=== PATIENT | female | born 1935 | race African-American/Black ===

== ENCOUNTER 2021-03-08 11:11 | Emergency (ER) | payer MEDICARE, OTHER ==
[2021-03-08 11:16] VITALS: TEMP 97.8
--- NOTE | 2021-03-08 11:35 | ED ---
General Adult HPI - General Chief complaint: Recheck/Abnormal Lab/Rx Stated complaint: Peg tube issue Time Seen by Provider: 03/08/21 11:14 Source: patient, EMS, RN notes reviewed, old records reviewed Mode of arrival: EMS Limitations: altered mental status - History of Present Illness Initial comments: 85-year-old female presenting for PEG tube malfunction. According to EMS the PEG tube and not flushed this morning and medications were not able to be administered. No other issues reported, no fever. No vomiting. No erythema around the PEG tube site reported. Staff attempted to flush but were unable to flush the PEG tube. - Related Data Home Medications Medication Instructions Recorded Confirmed Acetaminophen Oral Susp [Tylenol] 650 mg PEG/G-TUBE QID PRN 03/08/21 03/08/21 Ascorbic Acid [Vitamin C] 500 mg PEG/G-TUBE DAILY 03/08/21 03/08/21 Atorvastatin [Lipitor] 40 mg PEG/G-TUBE HS 03/08/21 03/08/21 Carvedilol [Coreg] 25 mg PEG/G-TUBE BID 03/08/21 03/08/21 Cholecalciferol [Vitamin D3 (25 50 mcg PEG/G-TUBE DAILY 03/08/21 03/08/21 Mcg = 1000 Iu)] Famotidine 20 mg PEG/G-TUBE HS 03/08/21 03/08/21 Sennosides/Docusate Sodium [Senna 1 tab PEG/G-TUBE HS 03/08/21 03/08/21 Plus 8.6-50 mg Tablet] Zinc 50 mg PEG/G-TUBE DAILY 03/08/21 03/08/21 amLODIPine [Norvasc] 10 mg PEG/G-TUBE DAILY 03/08/21 03/08/21 bisacodyL [Bisacodyl] 10 mg RECTAL Q48H 03/08/21 03/08/21 dexAMETHasone [Dexamethasone] 2 mg PEG/G-TUBE DAILY 03/08/21 03/08/21 lisinopriL [Zestril] 10 mg PEG/G-TUBE BID 03/08/21 03/08/21 Allergies Allergy/AdvReac Type Severity Reaction Status Date / Time No Known Allergies Allergy Verified 03/08/21 11:29 Review of Systems ROS Statement: Those systems with pertinent positive or pertinent negative responses have been documented in the HPI. ROS Other: All systems not noted in ROS Statement are negative. Past Medical History Past Medical History: Unable to Obtain History of Any Multi-Drug Resistant Organisms: Unobtainable Past Surgical History: Unable to Obtain Past Psychological History: Unable to Obtain Smoking Status: Unknown if ever smoked Past Alcohol Use History: Unable to Obtain Past Drug Use History: Unable to Obtain General Exam Limitations: altered mental status General appearance: in no apparent distress, lethargic, cachectic Head exam: Present: atraumatic, normocephalic Eye exam: Present: normal appearance, PERRL Respiratory exam: Present: normal lung sounds bilaterally. Absent: respiratory distress, wheezes, rales Cardiovascular Exam: Present: regular rate, normal rhythm GI/Abdominal exam: Present: soft, other (No erythema surrounding PEG tube site.). Absent: distended, tenderness Neurological exam: Absent: oriented X3 Skin exam: Present: warm, dry, intact. Absent: cyanosis, diaphoretic Course Vital Signs 03/08/21 11:13 Temperature 97.8 F Pulse Rate 74 Respiratory 16 Rate Blood Pressure 167/68 O2 Sat by Pulse 98 Oximetry Medical Decision Making - Medical Decision Making 85-year-old female with suspected PEG tube malfunction. I was able to easily draw and flush water through the PEG tube. X-ray with contrast was performed to confirm placement. There is satisfactory opacification within the stomach, no free air, no contrast extravasation. Disposition Clinical Impression: PEG tube malfunction Disposition: HOME SELF-CARE Condition: Fair Instructions (If sedation given, give patient instructions): How to Use and Care for Your PEG Tube (ED) Is patient prescribed a controlled substance at d/c from ED?: No Referrals: Jm Ponce MD [Primary Care Provider] - 1-2 days
--- NOTE | 2021-03-08 12:14 | XR ---
EXAMINATION TYPE: XR KUB DATE OF EXAM: 03/08/2021 12:09 PM CLINICAL HISTORY: PEG tube displacement and repositioning TECHNIQUE: Single portable supine KUB image of the abdomen is obtained after PEG tube injection of 50 cc Isovue 370. COMPARISON: None. FINDINGS: There is successful contrast opacification of the stomach in the epigastric region and left upper quadrant consistent with successful repositioning. Numerous small coils from ventral wall maverick ia repair surgery overlie the visualized abdomen. Overall nonobstructive bowel gas pattern. Visualize d lungs are clear. Visualized osseous structures are demineralized. IMPRESSION: As above.
[2021-03-08 13:37] VITALS: BP 157/98; PULSE 72; RESP 18
== END 2021-03-08 13:55 | disposition home or self-care (01) ==
LOC: EC 11:11 → EEVIPCON 11:11 → EC 13:55
DX: K94.23 Gastrostomy malfunction (principal); Z79.02 Long term (current) use of antithrombotics/antiplatelets; Z79.899 Other long term (current) drug therapy; Z79.52 Long term (current) use of systemic steroids
CPT/HCPCS: 74018; 99284; Q9967; 87070; 87077; 87186; 87205

== ENCOUNTER 2021-03-13 19:37 | Emergency (ER) | payer MEDICARE, OTHER ==
[2021-03-13 20:07] VITALS: TEMP 98.5
--- NOTE | 2021-03-13 20:58 | ED ---
General Adult HPI - General Chief complaint: Fall Stated complaint: Fall Time Seen by Provider: 03/13/21 19:57 Source: patient, EMS, RN notes reviewed, old records reviewed Mode of arrival: EMS Limitations: physical limitation - History of Present Illness Initial comments: 85-year-old female presents status post fall. Patient is bedbound, uncertain exactly how she fell out of her bed. There was suggestion of head injury but no external signs of trauma. Patient is unable to significantly contribute to the history but she does deny head or neck pain. Denies any new pain complaints. - Related Data Home Medications Medication Instructions Recorded Confirmed Acetaminophen Oral Susp [Tylenol] 650 mg PEG/G-TUBE QID PRN 03/08/21 03/13/21 Ascorbic Acid [Vitamin C] 500 mg PEG/G-TUBE DAILY@0903/08/21 03/13/21 Atorvastatin [Lipitor] 40 mg PEG/G-TUBE HS@209903/08/21 03/13/21 Carvedilol [Coreg] 25 mg PEG/G-TUBE BID@09,209903/08/21 03/13/21 Cholecalciferol [Vitamin D3 (25 50 mcg PEG/G-TUBE DAILY@0900 03/08/21 03/13/21 Mcg = 1000 Iu)] Famotidine 20 mg PEG/G-TUBE HS@209903/08/21 03/13/21 Sennosides/Docusate Sodium [Senna 1 tab PEG/G-TUBE HS@209903/08/21 03/13/21 Plus 8.6-50 mg Tablet] Zinc 50 mg PEG/G-TUBE DAILY@89903/08/21 03/13/21 amLODIPine [Norvasc] 10 mg PEG/G-TUBE DAILY@0900 03/08/21 03/13/21 bisacodyL [Bisacodyl] 10 mg RECTAL Q48H 03/08/21 03/13/21 lisinopriL [Zestril] 10 mg PEG/G-TUBE BID@0900,209903/08/21 03/13/21 Lactose-Reduced Food/Fiber [Jevity 75 ml PO DAILY@1400 03/13/21 03/13/21 1.2 Sachin Liquid] Sulfamethox-Tmp 800-160Mg [Bactrim 1 tab PEG/G-TUBE BID@0900,2100 03/13/21 03/13/21 DS 800-160 mg] Allergies Allergy/AdvReac Type Severity Reaction Status Date / Time No Known Allergies Allergy Verified 03/13/21 20:16 Review of Systems ROS Statement: Those systems with pertinent positive or pertinent negative responses have been documented in the HPI. ROS Other: All systems not noted in ROS Statement are negative. Past Medical History Past Medical History: Unable to Obtain, Heart Failure, Hyperlipidemia Additional Past Medical History / Comment(s): COVID POSITIVE. BRAIN BLEED HISTORY WITH LEFT HEMIPARESIS History of Any Multi-Drug Resistant Organisms: Unobtainable Past Surgical History: Unable to Obtain Past Psychological History: Unable to Obtain Smoking Status: Unknown if ever smoked Past Alcohol Use History: Unable to Obtain Past Drug Use History: Unable to Obtain General Exam Limitations: physical limitation General appearance: alert, cachectic Head exam: Present: atraumatic, normocephalic Eye exam: Present: normal appearance, PERRL Respiratory exam: Present: rales, rhonchi. Absent: respiratory distress Cardiovascular Exam: Present: regular rate, normal rhythm GI/Abdominal exam: Present: soft, other (PEG tube). Absent: distended, tenderness, guarding Neurological exam: Present: alert Skin exam: Present: warm, dry, intact. Absent: abrasion Course Vital Signs 03/13/21 19:41 Temperature 98.5 F Pulse Rate 85 Respiratory 28 H Rate Blood Pressure 152/75 O2 Sat by Pulse 94 L Oximetry Medical Decision Making - Medical Decision Making 85-year-old female with an unwitnessed fall out of bed. 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 Unable to contribute to the history significantly. There is no external signs of trauma on examination. Given that there was a history of possible head, did perform CT of both the brain and cervical spine. This is negative for intracranial traumatic injury, or fracture or subluxation of the cervical spine. Disposition Clinical Impression: Fall Disposition: HOME SELF-CARE Condition: Fair Instructions (If sedation given, give patient instructions): Fall Prevention for Older Adults (ED) Is patient prescribed a controlled substance at d/c from ED?: No Referrals: Jm Ponce MD [Primary Care Provider] - 1-2 days Time of Disposition: 20:58
--- NOTE | 2021-03-13 22:04 | CT ---
EXAMINATION TYPE: CT brain emilia bone DATE OF EXAM: 03/13/2021 COMPARISON: None HISTORY: FALL. Trauma. Fall from bed. CT DLP: 1208 mGycm Automated exposure control for dose reduction was used. TECHNIQUE: CT scan of the head and cervical spine are performed without contrast. FINDINGS: There is no acute intracranial hemorrhage, mass effect, or midline shift identified. There is general ized volume loss. There is marked white matter hypodensities, right greater than left, likely sequela of chronic microvascular ischemic change. There is diffuse prominence of the ventricles concordant w ith generalized volume loss, mildly more asymmetric of the right lateral ventricles. There is a tiny focal hyperdensity along the wall of the right lateral ventricle mid body (201:30, 202:36). There is asymmetric hypodensity and decreased size of the right thalamus. Calcified vascular atherosclerotic d isease. There is a mild right frontal extracranial soft tissue hematoma. No depressed calvarial fracture. The re is mucosal thickening of the left sphenoid sinus. Mastoid air cells are clear. There is straightening of the cervical lordosis with multilevel multifactorial degenerative changes. There is no acute fracture or subluxation. Vertebral body heights are normal. There is an ossific den sity at the tip of the dens which is very well corticated and appears chronic and likely related to u nfused ossicle versus degenerative change. No prevertebral soft tissue swelling. Marked calcified ath erosclerotic disease of the bilateral carotid bulbs. Heterogenous nodular appearance of the thyroid gland bilaterally. IMPRESSION: 1. Small right frontal extracranial soft tissue hematoma. 2. No definite acute intracranial hemorrhage, midline shift, or mass effect. 3. Generalized volume loss, and marked white matter hypodensities likely sequela of chronic microvasc ular ischemic change (right greater than left). 4. Encephalomalacia of the right thalamus, mildly asymmetric prominence of the right lateral ventricl e, and small right lateral ventricular wall hyperdensity which likely represents calcification. These findings likely represent sequela of old infarction. 5. No acute cervical spine fracture or subluxation. 6. Marked calcified atherosclerotic disease of the bilateral carotid bulbs.
[2021-03-13 22:10] VITALS: BP 147/72; PULSE 71; RESP 24
== END 2021-03-13 23:37 | disposition home or self-care (01) ==
LOC: EC 19:37
DX: Z04.3 Encounter for examination and observation following other accident (principal); I50.9 Heart failure, unspecified; E78.5 Hyperlipidemia, unspecified; Z86.16 Personal history of COVID-19
CPT/HCPCS: 70450; 72125; 99284

== ENCOUNTER 2021-03-15 10:04 | Inpatient (IN) | payer MEDICARE, OTHER ==
--- NOTE | 2021-03-15 10:33 | ED ---
General Adult HPI - General Chief complaint: Shortness of Breath Stated complaint: SOB Time Seen by Provider: 03/15/21 10:13 Source: patient, EMS, RN notes reviewed, old records reviewed Mode of arrival: EMS Limitations: no limitations, altered mental status - History of Present Illness Initial comments: Patient is a pleasant 85-year-old female presenting to the emergency department with concerns for dyspnea. Patient recently from [place] [facility] for recovery with coronavirus infection. Patient states she is feeling fine and has no complaints. Patient is a very poor historian. Patient denies any recent injuries. Patient does have some ecchymosis right forehead and chart review revealed recent visit with computed tomography scan. - Related Data Home Medications Medication Instructions Recorded Confirmed Acetaminophen Oral Susp [Tylenol] 650 mg PEG/G-TUBE QID PRN 03/08/21 03/15/21 Ascorbic Acid [Vitamin C] 500 mg PEG/G-TUBE DAILY@0900 03/08/21 03/15/21 Atorvastatin [Lipitor] 40 mg PEG/G-TUBE HS@209903/08/21 03/15/21 Carvedilol [Coreg] 25 mg PEG/G-TUBE BID@0900,209903/08/21 03/15/21 Cholecalciferol [Vitamin D3 (25 50 mcg PEG/G-TUBE DAILY@0900 03/08/21 03/15/21 Mcg = 1000 Iu)] Famotidine 20 mg PEG/G-TUBE HS@209903/08/21 03/15/21 Sennosides/Docusate Sodium [Senna 2 tab PEG/G-TUBE HS@209903/08/21 03/15/21 Plus 8.6-50 mg Tablet] Zinc 50 mg PEG/G-TUBE DAILY@0900 03/08/21 03/15/21 amLODIPine [Norvasc] 10 mg PEG/G-TUBE DAILY@0900 03/08/21 03/15/21 bisacodyL [Bisacodyl] 10 mg RECTAL Q48H 03/08/21 03/15/21 lisinopriL [Zestril] 10 mg PEG/G-TUBE BID@0900,209903/08/21 03/15/21 Lactose-Reduced Food/Fiber [Jevity 75 ml PEG/G-TUBE DAILY@1400 03/13/21 03/15/21 1.2 Sachin Liquid] Sulfamethox-Tmp 800-160Mg [Bactrim 1 tab PEG/G-TUBE BID@0900,2100 03/13/21 03/15/21 DS 800-160 mg] Allergies Allergy/AdvReac Type Severity Reaction Status Date / Time No Known Allergies Allergy Verified 03/15/21 10:20 Review of Systems ROS Statement: Those systems with pertinent positive or pertinent negative responses have been documented in the HPI. ROS Other: All systems not noted in ROS Statement are negative. Constitutional: Denies: fever Eyes: Denies: eye pain ENT: Denies: ear pain Respiratory: Reports: as per HPI. Denies: cough, dyspnea Cardiovascular: Denies: chest pain Endocrine: Denies: fatigue Gastrointestinal: Denies: abdominal pain Genitourinary: Denies: dysuria Musculoskeletal: Denies: back pain Skin: Denies: rash Neurological: Denies: weakness Past Medical History Past Medical History: Unable to Obtain Additional Past Medical History / Comment(s): COVID POSITIVE. BRAIN BLEED HISTORY WITH LEFT HEMIPARESIS History of Any Multi-Drug Resistant Organisms: Unobtainable Past Surgical History: Unable to Obtain Past Psychological History: Unable to Obtain Smoking Status: Unknown if ever smoked Past Alcohol Use History: Unable to Obtain Past Drug Use History: Unable to Obtain General Exam Limitations: altered mental status General appearance: alert, in no apparent distress Head exam: Present: other (Ecchymosis without tenderness or swelling right forehead) Eye exam: Present: normal appearance Neck exam: Present: normal inspection Respiratory exam: Present: rales Cardiovascular Exam: Present: regular rate, normal rhythm GI/Abdominal exam: Present: soft. Absent: tenderness Extremities exam: Present: other (Left arm contracted) Neurological exam: Present: alert, motor sensory deficit (Left hemiparesis) Psychiatric exam: Present: normal affect, normal mood Skin exam: Present: other (Ecchymosis right forehead) Course Vital Signs 03/15/21 03/15/21 10:08 10:57 Temperature 98.3 F Pulse Rate 70 Respiratory 30 H 30 H Rate Blood Pressure 126/66 O2 Sat by Pulse 97 Oximetry EKG Findings - EKG Comments: EKG Findings:: Normal sinus rhythm with rate of 69. MA 146. QRS 68. QT 363 QTC 413. Normal axis. Normal QRS. No acute ST change. Medical Decision Making - Medical Decision Making Patient reevaluated and updated. Case was discussed with Dr. Goncalves, who will admit covering for Dr. Ponce. - Lab Data Result diagrams: 03/15/21 10:48 03/15/21 10:48 Lab Results 03/15/21 03/15/21 03/15/21 Range/Units 10:48 10:48 10:48 WBC 5.9 (3.8-10.6) k/uL RBC 3.03 L (3.80-5.40) m/uL Hgb 9.0 L (11.4-16.0) gm/dL Hct 29.1 L (34.0-46.0) % MCV 96.0 (80.0-100.0) fL MCH 29.6 (25.0-35.0) pg MCHC 30.8 L (31.0-37.0) g/dL RDW 14.7 (11.5-15.5) % MPV 11.4 Sodium 136 L (137-145) mmol/L Potassium 5.8 H (3.5-5.1) mmol/L Chloride 106 (98-107) mmol/L Carbon Dioxide 25 (22-30) mmol/L Anion Gap 5 mmol/L BUN 42 H (7-17) mg/dL Creatinine 0.84 (0.52-1.04) mg/dL Est GFR (CKD-EPI)AfAm 74 (>60 ml/min/1.73 sqM) Est GFR (CKD-EPI)NonAf 64 (>60 ml/min/1.73 sqM) Glucose 110 H (74-99) mg/dL Plasma Lactic Acid Toy 0.9 (0.7-2.0) mmol/L Calcium 9.1 (8.4-10.2) mg/dL Total Bilirubin 0.3 (0.2-1.3) mg/dL AST 31 (14-36) U/L ALT 21 (4-34) U/L Alkaline Phosphatase 81 (38-126) U/L Total Protein 5.6 L (6.3-8.2) g/dL Albumin 2.9 L (3.5-5.0) g/dL - Radiology Data Radiology results: image reviewed (Chest x-ray concerning for right retrocardiac density concerning for pneumonia.) Disposition Clinical Impression: Pneumonia, Dyspnea Disposition: ADMITTED IP TO THIS HOSP Is patient prescribed a controlled substance at d/c from ED?: No Referrals: Jm Ponce MD [Primary Care Provider] - 1-2 days Decision Time: 11:22
[2021-03-15 11:03] LABS: Basophils % (A) 0 %; Eosinophils # (A) 0.1 k/uL (0-0.7); Eosinophils % (A) 2 %; HCT 29.1 % (34.0-46.0); Lymphocytes # (A) 0.8 k/uL (1.0-4.8); Lymphocytes % (A) 14 %; MCH 29.6 pg (25.0-35.0); MCHC 30.8 g/dL (31.0-37.0); Mean Platelet Volume 11.4; Monocytes # (A) 0.4 k/uL (0-1.0); Monocytes % (A) 6 %; Neutrophils # (A) 4.5 k/uL (1.3-7.7); Neutrophils % (A) 77 %; RBC 3.03 m/uL (3.80-5.40); RDW 14.7 % (11.5-15.5); WBC 5.9 k/uL (3.8-10.6)
--- NOTE | 2021-03-15 11:11 | XR ---
EXAMINATION TYPE: XR chest 2V DATE OF EXAM: 03/15/2021 COMPARISON: NONE HISTORY: Difficulty breathing, weakness TECHNIQUE: Frontal and lateral views of the chest are obtained. FINDINGS: Patient is rotated, the aorta is dense. Heart may be enlarged, possibly accentuated due to rotation. No evident pneumothorax or sizable pleural effusion. There is questionable retrocardiac de nsity in the right, increased attenuation noted on the lateral exam. There are overlying artifacts, b one mineralization is reduced. IMPRESSION: Rotated exam. There are limitations. Correlate for pneumonia.
[2021-03-15 11:13] LABS: Prothrombin Time 10.4 sec (9.0-12.0)
[2021-03-15 11:15] LABS: Albumin 2.9 g/dL (3.5-5.0); Calcium 9.1 mg/dL (8.4-10.2); Potassium 5.8 mmol/L (3.5-5.1); Total Bilirubin 0.3 mg/dL (0.2-1.3); Total Protein 5.6 g/dL (6.3-8.2)
[2021-03-15] MEDS ORDERED: AZITHROMYCIN 500 MG in SODIUM CHLORIDE 0.9% 250 ML IVPB STA (11:23)
[2021-03-15] MEDS ORDERED: PIPERACILLIN-TAZOBACTAM 3.375 GM in SODIUM CHLORIDE 0.9% 100 ML IVPB STA (11:23)
[2021-03-15] MEDS ORDERED: IPRATROPIUM-ALBUTEROL 3 ML NEB INHALATION PRN (11:23)
[2021-03-15] MEDS ORDERED: PNEUMONIA PROTOCOL UTILIZED 1 EACH MISC PO PRN (11:23)
[2021-03-15 11:53] LABS: Platelet Count 59 k/uL (150-450)
[2021-03-15 12:09] LABS: Partial Thromboplastin Time 21.3 sec (22.0-30.0)
[2021-03-15] MEDS: SODIUM CHLORIDE 0.9% 1,000 ML IV SCH ×2 (12:09→20:24)
--- NOTE | 2021-03-15 13:28 | CT ---
EXAMINATION TYPE: CT angio chest DATE OF EXAM: 03/15/2021 COMPARISON: Chest x-ray 03/15/2021 HISTORY: Dyspnea CT DLP: 200.1 mGycm Automated exposure control for dose reduction was used. CONTRAST: CTA scan of the thorax is performed with IV Contrast, patient injected with 73 mL of Isovue 370, pulm onary embolism protocol. MIP images are created and reviewed. 3D reconstructed images are created o n an independent workstation and reviewed. FINDINGS: LUNGS: The lungs are remarkable for airspace disease in the right lower lobe, left lower lobe. Ther e is no pleural effusion or pneumothorax seen. The tracheobronchial tree is remarkable for bronchiec tatic changes in the right lower lobe. There is emphysematous and interstitial change within the lung s. AORTA: There are extensive atheromatous changes. MEDIASTINUM: There is satisfactory enhancement of the pulmonary artery and its branches, there is no CT evidence for pulmonary embolism. There are no greater than 1 cm hilar or mediastinal lymph nodes. Small pericardial effusion is seen. Prominence of pulmonary artery may be indicative of pulmonary ar samia hypertension. There are coronary artery calcifications OTHER: There are low dense thyroid nodules. There is thoracic spondylosis IMPRESSION: CORRELATE FOR PNEUMONIA. INTERSTITIAL LUNG DISEASE, BRONCHIECTASIS, FOLLOW-UP SUGGESTED, THERE IS EMP HYSEMA, CORRELATE FOR PULMONARY ARTERY HYPERTENSION. Small pericardial effusion, coronary artery dise ase
[2021-03-15] MEDS ORDERED: ACETAMINOPHEN ORAL SUSP (PEDS) 3,840 MG/120 ML BOTTLE PEG/G-TUBE PRN (17:03)
--- NOTE | 2021-03-15 19:09 | HP ---
HISTORY AND PHYSICAL CHIEF COMPLAINT: Shortness of breath. HISTORY OF PRESENT ILLNESS: This 85-year-old woman with past medical history of multiple medical problems including history of brain bleed with left hemiparesis, being followed by Dr. Ponce in the outpatient setting, was taken to [facility] with complaints of shortness of breath. The patient unable to give a coherent history. The patient is in a [place] [facility] and the patient was previously tested for COVID-19 positive. The patient is complaining of weakness and some shortness of breath. The patient came to [facility] and was admitted for further evaluation and treatment. Evaluation showed pulse ox about 98% on 2 L. Patient was tachypneic initially. The chest x-ray was done which was reviewed personally by me showed possibly significant pneumonia on the right side and the patient had multiple lab abnormalities. Covid 19 test was positive. Patient admitted to the hospital further evaluation and treatment. There is no history of any fever, rigor or chills at this time. PAST MEDICAL HISTORY: Brain bleed with left hemiparesis. MEDICATIONS: Medications prior to admission include home medications are: Zestril, Norvasc, Bactrim DS, lactulose, Pepcid, vitamin D3, Coreg, Lipitor, vitamin C, Tylenol. ALLERGIES: None. Family history, social history and review of systems could not be taken at length because of change in mental status. PHYSICAL EXAMINATION: Pulse 76. Blood pressure 126/61, respiration 30, temperature 98.3, pulse ox 97% on 2 L. HEENT: Conjunctivae normal. NECK: No JVD. CARDIOVASCULAR: S1, S2 muffled. RESPIRATION: Breath sounds diminished in the bases. A few scattered rhonchi. ABDOMEN: Soft, scaphoid. LEGS: No edema. No swelling. NERVOUS SYSTEM: Higher functions as mentioned. Movements are diminished. Some contractures also present. SKIN: No ulcers, rashes or bleeding. JOINTS: No active deforming arthropathy. LABS: WBC 5.9, hemoglobin 9, platelets of 59. Sodium 130, potassium 5.8. ASSESSMENT: 1. Acute COVID-19 pneumonia with possible acute COVID-19 bilateral pneumonia. 2. Elevated D-dimer. 3. Hyponatremia. 4. Hyperkalemia. 5. Anemia, normocytic. 6. Thrombocytopenia. 7. Hypoalbuminemia with malnutrition. 8. Hypertension. 9. History of brain bleed with left hemiparesis. RECOMMENDATIONS AND DISCUSSION: This 85-year-old woman who presented with multiple complex medical issues, we will monitor the patient closely. Continue the current medications, management and symptomatic treatment. We will initiate broad-spectrum IV antibiotics. Otherwise, I would also recommend a CT angio of the chest to rule out the possibility of pulmonary embolism. Usual treatment with COVID-19. Guarded prognosis because of multiple complex medical issues. Further recommendations to follow. A copy of dictation being forwarded to Dr. Ponce who is the primary physician. MMODL / IJN: [id number] /
[2021-03-15] MEDS: ENOXAPARIN 40 MG/0.4 ML SYRINGE SQ SCH (20:23)
[2021-03-15] MEDS: SENNOSIDES-DOCUSATE SODIUM 1 EACH TAB PO SCH (20:24)
[2021-03-15] MEDS: carvediloL 12.5 MG TAB PEG/G-TUBE SCH (20:24)
[2021-03-15] MEDS: lisinopriL 10 MG TAB PEG/G-TUBE SCH (20:24)
[2021-03-15] MEDS: ATORVASTATIN 40 MG TAB PEG/G-TUBE SCH (20:24)
[2021-03-15] MEDS: PIPERACILLIN-TAZOBACTAM 3.375 GM in SODIUM CHLORIDE 0.9% 100 ML IVPB SCH (20:31)
[2021-03-16] MEDS: PIPERACILLIN-TAZOBACTAM 3.375 GM in SODIUM CHLORIDE 0.9% 100 ML IVPB SCH ×3 (03:09→19:46)
[2021-03-16] MEDS: amLODIPine 10 MG TAB PEG/G-TUBE SCH (07:21)
[2021-03-16] MEDS: carvediloL 12.5 MG TAB PEG/G-TUBE SCH ×2 (08:08→19:46)
[2021-03-16] MEDS: lisinopriL 10 MG TAB PEG/G-TUBE SCH ×2 (08:09→19:46)
[2021-03-16] MEDS: bisacodyL 10 MG SUPP RECTAL SCH (08:11)
[2021-03-16] MEDS: ENOXAPARIN 40 MG/0.4 ML SYRINGE SQ SCH (08:11)
[2021-03-16] MEDS: ZINC SULFATE 220 MG CAP PEG/G-TUBE SCH (08:11)
[2021-03-16] MEDS: ASCORBIC ACID 500 MG TAB PEG/G-TUBE SCH (08:11)
[2021-03-16] MEDS: CHOLECALCIFEROL 25 MCG (1000 IU) TABLET PEG/G-TUBE SCH (08:11)
[2021-03-16] MEDS: ALBUTEROL HFA INHALER INHALATION PRN ×2 (09:29→16:16)
[2021-03-16] MEDS ORDERED: AZITHROMYCIN 500 MG in SODIUM CHLORIDE 0.9% 250 ML IVPB SCH (11:00)
--- NOTE | 2021-03-16 11:29 | XR ---
EXAMINATION TYPE: XR chest 1V portable DATE OF EXAM: 03/16/2021 HISTORY: Shortness of breath. COMPARISON: 03/15/2021 TECHNIQUE: Single view of the chest is submitted. FINDINGS: Demonstrated are scattered senescent parenchymal change. Hyperinflation is compatible with COPD. There is no evidence for focal infiltrate. The heart is stable. Hilar and mediastinal structures are within normal limits. Degenerative changes are seen of the dorsal spine. IMPRESSION: 1. Chronic changes without evidence for acute pulmonary disease.
[2021-03-16 11:45] LABS: African American GFR (CKD) 78.5 (60.0-200.0); Anion Gap 5.6 mmol/L (4.00-12.00); Calcium 8.8 mg/dL (8.7-10.3); Carbon Dioxide 20.4 mmol/L (21.6-31.8); Non-African American GFR(CKD) 67.7 (60.0-200.0); Potassium 5.4 mmol/L (3.5-5.5)
[2021-03-16] MEDS ORDERED: LACTOSE REDUCED FOOD PEG/G-TUBE SCH (14:00)
[2021-03-16] MEDS ORDERED: FIBER PEG/G-TUBE SCH (14:00)
[2021-03-16 15:14] LABS: Basophils # (A) 0.01 X 10*3/uL (0.00-0.10); Basophils % (A) 0.3 %; Eosinophils # (A) 0.09 X 10*3/uL (0.04-0.35); Eosinophils % (A) 2.4 %; HCT 28.2 % (37.2-46.3); HGB 8.3 g/dL (12.0-15.0); Lymphocytes # (A) 0.74 X 10*3/uL (0.90-5.00); Lymphocytes % (A) 19.7 %; MCH 30.4 pg (27.0-32.0); MCHC 29.4 g/dL (32.0-37.0); MCV 103.3 fL (80.0-97.0); Mean Platelet Volume 13.1 fL (9.5-12.2); Monocytes # (A) 0.36 X 10*3/uL (0.20-1.00); Monocytes % (A) 9.6 %; Neutrophils # (A) 2.55 X 10*3/uL (1.80-7.70); Neutrophils % (A) 67.7 %; Platelet Count 58 X 10*3/uL (140-440); RBC 2.73 X 10*6/uL (4.10-5.20); RDW 14.5 % (11.5-14.5); WBC 3.76 X 10*3/uL (4.50-10.00)
[2021-03-16 15:15] LABS: Acanthocytes 2+
--- NOTE | 2021-03-16 17:21 | PN ---
PROGRESS NOTE DATE OF SERVICE: 03/16/2021 This 85-year-old woman who is followed by Dr. Ponce in the outpatient setting had COVID- 19 pneumonia. The patient had extensive bilateral pneumonia suggestive of COVID- 19 pneumonia, right more than the left. Past medical history reviewed. Review of systems could not be taken. CURRENT MEDICATIONS: Ventolin. Norvasc, vitamin C, Lipitor, Zithromax, Lovenox, Zestril, Zosyn. PHYSICAL EXAMINATION: Patient is alert, oriented x3. Pulse 67, blood pressure 120/50, respirations 16, temperature 97.4, pulse ox 97% on 2 L. HEENT: Conjunctivae normal. NECK: No jugular venous distention. CARDIOVASCULAR SYSTEM: S1, S2 muffled. RESPIRATORY SYSTEM: Breath sounds diminished at the bases. Scattered rhonchi and crackles. ABDOMEN: Soft, non-tender. Status post PEG tube present. LEGS: No edema. No swelling. NERVOUS SYSTEM: No focal deficit. Left contractures present. LABS: WBC 3.6, hemoglobin is 8.3, platelets are 58. Sodium is 141, potassium 5.4. COVID-19 is positive. ASSESSMENT: 1. Acute COVID-19 pneumonia with possible acute bilateral interstitial pneumonia, right more than the left. 2. Change in mental status, acute metabolic encephalopathy. 3. Elevated D-dimer. 4. Hyponatremia. 5. Hyperkalemia. 6. Anemia, normocytic. 7. Status post PEG tube. 8. Thrombocytopenia. 9. Hypoalbuminemia with malnutrition. 10.Hypertension. 11.History of brain bleed and left hemiparesis. 12.FULL CODE. RECOMMENDATIONS AND DISCUSSION: In this 85-year-old woman who presented with multiple complex medical issues, we will monitor the patient closely, continue the current medications, continue symptomatic treatment. Continue the broad-spectrum IV antibiotics. Continue with PEG tube, aspiration precautions. Measures for the DVT and measures for the COVID-19 pneumonia as well. Prognosis is extremely guarded because of multiple complex medical issues. I would also repeat labs tomorrow and continue to monitor. Further recommendations to follow. Cultures are pending at this time. MMODL / IJN: [id number] / MTDD
[2021-03-16] MEDS: SODIUM CHLORIDE 0.9% 1,000 ML IV SCH (17:45)
[2021-03-16 18:04] LABS: ALT 19 U/L (4-34); AST 28 U/L (14-36); African American GFR (CKD) >90 (>60 ml/min/1.73 sqM); Albumin 2.5 g/dL (3.5-5.0); Alkaline Phosphatase 67 U/L (38-126); Anion Gap 4 mmol/L; Blood Urea Nitrogen 28 mg/dL (7-17); Calcium 8.9 mg/dL (8.4-10.2); Carbon Dioxide 21 mmol/L (22-30); Chloride 114 mmol/L (98-107); Globulin 2.4 g/dL; Glucose 119 mg/dL (74-99); Non-African American GFR(CKD) 79 (>60 ml/min/1.73 sqM); Sodium 139 mmol/L (137-145); Total Bilirubin 0.2 mg/dL (0.2-1.3); Total Protein 4.9 g/dL (6.3-8.2)
[2021-03-16] MEDS: SENNOSIDES-DOCUSATE SODIUM 1 EACH TAB PO SCH (19:15)
[2021-03-16] MEDS: ATORVASTATIN 40 MG TAB PEG/G-TUBE SCH (19:45)
[2021-03-17] MEDS: PIPERACILLIN-TAZOBACTAM 3.375 GM in SODIUM CHLORIDE 0.9% 100 ML IVPB SCH ×3 (02:40→20:09)
[2021-03-17] MEDS: ENOXAPARIN 40 MG/0.4 ML SYRINGE SQ SCH (08:19)
[2021-03-17] MEDS: ASCORBIC ACID 500 MG TAB PEG/G-TUBE SCH (08:20)
[2021-03-17] MEDS: lisinopriL 10 MG TAB PEG/G-TUBE SCH ×2 (08:20→20:10)
[2021-03-17] MEDS: amLODIPine 10 MG TAB PEG/G-TUBE SCH (08:20)
[2021-03-17] MEDS: carvediloL 12.5 MG TAB PEG/G-TUBE SCH ×2 (08:20→20:10)
[2021-03-17] MEDS: AZITHROMYCIN 500 MG TAB PEG/G-TUBE SCH (08:20)
[2021-03-17] MEDS: CHOLECALCIFEROL 25 MCG (1000 IU) TABLET PEG/G-TUBE SCH (08:20)
[2021-03-17] MEDS: ZINC SULFATE 220 MG CAP PEG/G-TUBE SCH (08:20)
[2021-03-17] MEDS: ALBUTEROL HFA INHALER INHALATION PRN ×2 (09:14→21:07)
[2021-03-17] MEDS: SODIUM CHLORIDE 0.9% 1,000 ML IV SCH (12:26)
--- NOTE | 2021-03-17 17:04 | PN ---
PROGRESS NOTE DATE OF SERVICE: 03/17/2021 This 85-year-old woman who was admitted with acute COVID-19 pneumonia, possibly acute bilateral interstitial pneumonia, right more than the left, also had a PEG tube in situ. The patient has not tolerated the PEG tube well. Today the PEG tube has been reduced to 20 mL at this time. The most recent chest x-ray, which was reviewed personally by me, showed some increased infiltrate on the on the right side. A chest CTA was done which showed low thyroid nodule, interstitial pneumonia, small pericardial effusion, multiple other abnormalities also. Past medical history reviewed. Review of systems could not be taken. The patient is stuporous. CURRENT MEDICATIONS: Reviewed. They include Tylenol, Ventolin, Norvasc, vitamin C, Lipitor, Zithromax, Dulcolax, Coreg. Doses are reviewed. PHYSICAL EXAMINATION: Patient is alert and . Pulse 79, blood pressure 110/64, respiration 18, temperature 96.9, pulse ox 96% on 2 L. HEENT: Conjunctivae normal. NECK: No jugular venous distention. CARDIOVASCULAR SYSTEM: S1, S2 muffled. RESPIRATORY SYSTEM: Breath sounds diminished at the bases. A few scattered rhonchi. ABDOMEN: Soft. NERVOUS SYSTEM: Contractures on the left side. LABS: WBC 3.7, hemoglobin is 8.3. Sodium 139, potassium 4. COVID-19 is positive. ASSESSMENT: 1. Acute COVID-19 infection and pneumonia with acute bilateral interstitial pneumonia, right more than the left. 2. Change in mental status, acute metabolic encephalopathy. 3. Elevated D-dimer. 4. Hyponatremia. 5. Hyperkalemia. 6. Anemia, normocytic. 7. Status post PEG tube. 8. Left-sided weakness and contractures. 9. Thrombocytopenia. 10.Hypoalbuminemia with malnutrition. 11.Hypertension. 12.History of brain bleed and left hemiparesis. 13.FULL CODE. RECOMMENDATIONS AND DISCUSSION: I recommend to continue current medications, continue with the monitoring, symptomatic treatment. DVT prophylaxis. Otherwise, aspiration precautions. Repeat labs. Potassium is improved at this time. Continue with broad-spectrum IV antibiotics. Guarded prognosis because of multiple complex medical issues. Further recommendations to follow. MMODL / IJN: [id number] /
[2021-03-17 17:47] LABS: Basophils # (A) 0 X 10*3/uL (0.00-0.10); Basophils % (A) 0 %; Eosinophils # (A) 0.09 X 10*3/uL (0.04-0.35); Eosinophils % (A) 1.7 %; HCT 30.3 % (37.2-46.3); HGB 8.9 g/dL (12.0-15.0); Lymphocytes % (A) 13.3 %; MCH 30.2 pg (27.0-32.0); MCHC 29.4 g/dL (32.0-37.0); MCV 102.7 fL (80.0-97.0); Mean Platelet Volume 13.2 fL (9.5-12.2); Monocytes % (A) 5.7 %; Neutrophils # (A) 4.13 X 10*3/uL (1.80-7.70); Neutrophils % (A) 78.7 %; Platelet Count 73 X 10*3/uL (140-440); RBC 2.95 X 10*6/uL (4.10-5.20); RDW 14.2 % (11.5-14.5); WBC 5.25 X 10*3/uL (4.50-10.00)
[2021-03-17] MEDS: SENNOSIDES-DOCUSATE SODIUM 1 EACH TAB PO SCH (20:10)
[2021-03-17] MEDS: ATORVASTATIN 40 MG TAB PEG/G-TUBE SCH (20:10)
[2021-03-18] MEDS: PIPERACILLIN-TAZOBACTAM 3.375 GM in SODIUM CHLORIDE 0.9% 100 ML IVPB SCH ×3 (04:33→21:02)
[2021-03-18] MEDS: CHOLECALCIFEROL 25 MCG (1000 IU) TABLET PEG/G-TUBE SCH (08:33)
[2021-03-18] MEDS: lisinopriL 10 MG TAB PEG/G-TUBE SCH ×2 (08:33→21:02)
[2021-03-18] MEDS: ZINC SULFATE 220 MG CAP PEG/G-TUBE SCH (08:33)
[2021-03-18] MEDS: amLODIPine 10 MG TAB PEG/G-TUBE SCH (08:33)
[2021-03-18] MEDS: AZITHROMYCIN 500 MG TAB PEG/G-TUBE SCH (08:33)
[2021-03-18] MEDS: carvediloL 12.5 MG TAB PEG/G-TUBE SCH ×2 (08:33→21:02)
[2021-03-18] MEDS: ENOXAPARIN 40 MG/0.4 ML SYRINGE SQ SCH (08:34)
[2021-03-18] MEDS: ASCORBIC ACID 500 MG TAB PEG/G-TUBE SCH (08:34)
[2021-03-18] MEDS: bisacodyL 10 MG SUPP RECTAL SCH (08:34)
[2021-03-18] MEDS: SODIUM CHLORIDE 0.9% 1,000 ML IV SCH (19:37)
[2021-03-18] MEDS: ATORVASTATIN 40 MG TAB PEG/G-TUBE SCH (21:02)
[2021-03-18] MEDS: SENNOSIDES-DOCUSATE SODIUM 1 EACH TAB PO SCH (21:02)
--- NOTE | 2021-03-18 23:09 | P.PN ---
Progress Note - Text Progress Note Date: 03/18/21 Presenting complaint: Shortness of breath History of presenting complaint Patient is resident of [facility] in the [place]. Per the EMS report patient had become more short of breath increasing respirations. Patient had initially recovered from COVID 19 as of March 11. Patient is using accessory muscles. Patient admitted with COVID 19 pneumonia. Metabolic encephalopathy. Has chronically slurred speech and left arm contracture. 2 feeding rate was decreased. Today: Sitting up/reclining in bed. No nausea vomiting. A bit tired. Getting 2 feeding at 20 mL an hour. Review of systems: Was done for constitutional, cardiovascular, GI, pulmonary. relevant finding as above Active Medications Acetaminophen (Acetaminophen Oral Susp (Peds) 3,840 Mg/120 Ml Bottle) 640 mg PEG/G-TUBE QID PRN PRN Reason: Fever Albuterol Sulfate (Albuterol Hfa Inhaler) 1 puff INHALATION RT-QID PRN PRN Reason: Shortness Of Breath Or Wheezing Last Admin: 03/17/21 21:07 Dose: 1 puff Documented by: Amlodipine Besylate (Amlodipine 10 Mg Tab) 10 mg PEG/G-TUBE DAILY@0900 [facility] Last Admin: 03/18/21 08:33 Dose: 10 mg Documented by: Ascorbic Acid (Ascorbic Acid 500 Mg Tab) 500 mg PEG/G-TUBE DAILY@0900 [facility] Last Admin: 03/18/21 08:34 Dose: 500 mg Documented by: Atorvastatin Calcium (Atorvastatin 40 Mg Tab) 40 mg PEG/G-TUBE HS@2100 [facility] Last Admin: 03/18/21 21:02 Dose: 40 mg Documented by: Azithromycin (Azithromycin 500 Mg Tab) 500 mg PEG/G-TUBE DAILY [facility] Last Admin: 03/18/21 08:33 Dose: 500 mg Documented by: Bisacodyl (Bisacodyl 10 Mg Supp) 10 mg RECTAL Q48H [facility] Last Admin: 03/18/21 08:34 Dose: 10 mg Documented by: Carvedilol (Carvedilol 12.5 Mg Tab) 25 mg PEG/G-TUBE BID@0900,2100 [facility] Last Admin: 03/18/21 21:02 Dose: 25 mg Documented by: Cholecalciferol (Cholecalciferol 25 Mcg (1000 Iu) Tablet) 50 mcg PEG/G-TUBE DAILY@0900 [facility] Last Admin: 03/18/21 08:33 Dose: 50 mcg Documented by: Enoxaparin Sodium (Enoxaparin 40 Mg/0.4 Ml Syringe) 40 mg SQ DAILY [facility] Last Admin: 03/18/21 08:34 Dose: 40 mg Documented by: Piperacillin Sod/Tazobactam (Sod 3.375 gm/ Sodium Chloride) 100 mls @ 25 mls/hr IVPB Q8H [facility] Last Admin: 03/18/21 21:02 Dose: 25 mls/hr Documented by: Sodium Chloride (Saline 0.9%) 1,000 mls @ 50 mls/hr IV .Q20H [facility] Last Admin: 03/18/21 19:37 Dose: Not Given Documented by: Lisinopril (Lisinopril 10 Mg Tab) 10 mg PEG/G-TUBE BID@0900,2100 [facility] Last Admin: 03/18/21 21:02 Dose: 10 mg Documented by: Miscellaneous Information (Pneumonia Protocol Utilized 1 Each Misc) 1 each PO ONCE PRN PRN Reason: Per Protocol Senna/Docusate Sodium (Sennosides-Docusate Sodium 1 Each Tab) 2 each PO HS@2100 [facility] Last Admin: 03/18/21 21:02 Dose: 2 each Documented by: Zinc Sulfate (Zinc Sulfate 220 Mg Cap) 220 mg PEG/G-TUBE DAILY@0900 [facility] Last Admin: 03/18/21 08:33 Dose: 220 mg Documented by: On examination: VITAL SIGNS: [97.9, 84, 18, 152/69, 97% on 2 L] GENERAL APPEARANCE: BMI 21.1, sitting up in bed, awake a bit tired. HEENT: Normal external appearance of nose and ear. EYES: Pupils equal. Conjunctiva normal. NECK: JVD not raised. Mass not palpable. RESPIRATORY: Respiratory effort normal. Decreased breath sounds CARDIOVASCULAR: First and second sounds normal. No edema. ABDOMEN: Soft. Liver and spleen not palpable. No tenderness. No mass palpable. PEG tube PSYCHIATRY: Able tonsil simple questions NEUROLOGICAL: Left arm contracture. Slurred speech . INVESTIGATIONS, reviewed in the clinical context: WBC 5.2 hemoglobin 8.9 platelets 73 d-dimer 7.19 CRP 0.6 Coronavirus [PCR] detected Assessment and plan: -Acute bilateral COVID 19 pneumonia, with secondary bacterial pneumonia Patient receiving IV Zosyn and Zithromax. 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 Will increase the tube feeding to try to achieve to goal. Continue IV antibiotics another 24 hours. Repeat labs. Possibly DC Bactrim to [facility]CF tomorrow.
[2021-03-19] MEDS: SODIUM CHLORIDE 0.9% 1,000 ML IV SCH (05:04)
[2021-03-19] MEDS: PIPERACILLIN-TAZOBACTAM 3.375 GM in SODIUM CHLORIDE 0.9% 100 ML IVPB SCH ×2 (05:17→13:44)
[2021-03-19 05:23] VITALS: TEMP 98.3
[2021-03-19 06:20] LABS: Glucose,Whole Blood 140 mg/dL (75-99)
[2021-03-19] MEDS: CHOLECALCIFEROL 25 MCG (1000 IU) TABLET PEG/G-TUBE SCH (07:53)
[2021-03-19] MEDS: amLODIPine 10 MG TAB PEG/G-TUBE SCH (07:53)
[2021-03-19] MEDS: lisinopriL 10 MG TAB PEG/G-TUBE SCH (07:53)
[2021-03-19] MEDS: carvediloL 12.5 MG TAB PEG/G-TUBE SCH (07:53)
[2021-03-19] MEDS: ASCORBIC ACID 500 MG TAB PEG/G-TUBE SCH (07:53)
[2021-03-19] MEDS: ENOXAPARIN 40 MG/0.4 ML SYRINGE SQ SCH (07:54)
[2021-03-19] MEDS: AZITHROMYCIN 500 MG TAB PEG/G-TUBE SCH (07:54)
[2021-03-19] MEDS: ZINC SULFATE 220 MG CAP PEG/G-TUBE SCH (07:54)
[2021-03-19 11:28] LABS: Glucose,Whole Blood 159 mg/dL (75-99)
[2021-03-19 14:23] VITALS: BP 175/81; PULSE 91; RESP 22
--- NOTE | 2021-03-19 15:41 | P.DS ---
Providers Date of admission: 03/15/21 11:23 Expected date of discharge: 03/19/21 Attending physician: Babatunde Evangelista Primary care physician: Jm Ponce [facility] Course: Presenting complaint: Shortness of breath History of presenting complaint Patient is resident of [facility] in the [place]. Per the EMS report patient had become more short of breath increasing respirations. Patient had initially recovered from COVID 19 as of March 11. Patient is using accessory muscles. Patient admitted with COVID 19 pneumonia. Metabolic encephalopathy. Has chronically slurred speech and left arm contracture. 2 feeding rate was decreased. Tube feeding was then increased and patient's rate is up to baseline. Today: Comfortable. 2 feeding at goal. No respiratory symptoms. On examination: VITAL SIGNS: 98.3, 76, 20, 1 35 x 16 6, 90% on room air GENERAL APPEARANCE: BMI 21.1, laying in bed, comfortable HEENT: Normal external appearance of nose and ear. EYES: Pupils equal. Conjunctiva normal. NECK: JVD not raised. Mass not palpable. RESPIRATORY: Respiratory effort normal. Decreased breath sounds CARDIOVASCULAR: First and second sounds normal. No edema. ABDOMEN: Soft. Liver and spleen not palpable. No tenderness. No mass palpable. PEG tube PSYCHIATRY: Answering simple questions NEUROLOGICAL: Left arm contracture. Slurred speech . INVESTIGATIONS, reviewed in the clinical context: March 19: D-dimer 10.04 procalcitonin 0.10 CRP less than 0.5 WBC 5.2 hemoglobin 8.9 platelets 73 d-dimer 7.19 CRP 0.6 Coronavirus [PCR] detected Assessment and plan: -Acute bilateral COVID 19 pneumonia, with secondary bacterial pneumonia Patient received IV Zosyn and Zithromax. 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 -Essential hypertension On Norvasc and Zestril -GERD Continue Pepcid -Chronic PEG tube feeding 2 feeding at goal Disposition: [facility] Patient Condition at Discharge: Stable Plan - Discharge Summary Discharge Rx Participant: No New Discharge Prescriptions: New Albuterol Inhaler [Ventolin Hfa Inhaler] 1 puff INHALATION RT-QID PRN puff PRN Reason: Shortness Of Breath Or Wheezing Rivaroxaban [Xarelto] 2.5 mg PO DAILY #14 tablet Amoxicillin/Potassium Clav [Augmentin 875-125 Tablet] 1 tab PO Q12HR 1 Days #6 tab Continue Acetaminophen Oral Susp [Tylenol] 650 mg PEG/G-TUBE QID PRN PRN Reason: Fever Cholecalciferol [Vitamin D3 (25 Mcg = 1000 Iu)] 50 mcg PEG/G-TUBE DAILY@0900 amLODIPine [Norvasc] 10 mg PEG/G-TUBE DAILY@09 bisacodyL [Bisacodyl] 10 mg RECTAL Q48H Ascorbic Acid [Vitamin C] 500 mg PEG/G-TUBE DAILY@899 Lactose-Reduced Food/Fiber [Jevity 1.2 Sachin Liquid] 75 ml PEG/G-TUBE DAILY@1400 Zinc 50 mg PEG/G-TUBE DAILY@899 lisinopriL [Zestril] 10 mg PEG/G-TUBE BID@899,2099 Sennosides/Docusate Sodium [Senna Plus 8.6-50 mg Tablet] 2 tab PEG/G-TUBE HS@2099 Carvedilol [Coreg] 25 mg PEG/G-TUBE BID@ Famotidine 20 mg PEG/G-TUBE HS@2099 Atorvastatin [Lipitor] 40 mg PEG/G-TUBE HS@2099 Discontinued Sulfamethox-Tmp 800-160Mg [Bactrim DS 800-160 mg] 1 tab PEG/G-TUBE BID@899,2099 Discharge Medication List Acetaminophen Oral Susp [Tylenol] 650 mg PEG/G-TUBE QID PRN 03/08/21 [History] Ascorbic Acid [Vitamin C] 500 mg PEG/G-TUBE DAILY@89903/08/21 [History] Atorvastatin [Lipitor] 40 mg PEG/G-TUBE HS@209903/08/21 [History] Carvedilol [Coreg] 25 mg PEG/G-TUBE BID@899,209903/08/21 [History] Cholecalciferol [Vitamin D3 (25 Mcg = 1000 Iu)] 50 mcg PEG/G-TUBE DAILY@89903/08/21 [History] Famotidine 20 mg PEG/G-TUBE HS@209903/08/21 [History] Sennosides/Docusate Sodium [Senna Plus 8.6-50 mg Tablet] 2 tab PEG/G-TUBE HS@209903/08/21 [History] Zinc 50 mg PEG/G-TUBE DAILY@00 03/08/21 [History] amLODIPine [Norvasc] 10 mg PEG/G-TUBE DAILY@0900 03/08/21 [History] bisacodyL [Bisacodyl] 10 mg RECTAL Q48H 03/08/21 [History] lisinopriL [Zestril] 10 mg PEG/G-TUBE BID@0900,2100 03/08/21 [History] Lactose-Reduced Food/Fiber [Jevity 1.2 Sachin Liquid] 75 ml PEG/G-TUBE DAILY@1400 03/13/21 [History] Albuterol Inhaler [Ventolin Hfa Inhaler] 1 puff INHALATION RT-QID PRN puff 03/19/21 [Rx] Amoxicillin/Potassium Clav [Augmentin 875-125 Tablet] 1 tab PO Q12HR 1 Days #6 tab 03/19/21 [Rx] Rivaroxaban [Xarelto] 2.5 mg PO DAILY #14 tablet 03/19/21 [Rx] Follow up Appointment(s)/Referral(s): Jm Ponce MD [Primary Care Provider] - 1-2 days Patient Instructions/Handouts: Coronavirus Disease 2019 (COVID-19)
== END 2021-03-19 18:26 | DRG 177 ==
LOC: EC 10:04 → 4SSUR 11:23
PROVIDERS: ADMIT Hospitalist; ATTEND Hospitalist
DX: U07.1 COVID-19 (principal); J12.82 Pneumonia due to coronavirus disease 2019; I61.9 Nontraumatic intracerebral hemorrhage, unspecified; G93.41 Metabolic encephalopathy; J15.9 Unspecified bacterial pneumonia; E46 Unspecified protein-calorie malnutrition; E87.1 Hypo-osmolality and hyponatremia; I69.254 Hemiplegia and hemiparesis following other nontraumatic intracranial hemorrhage affecting left non-dominant side; D69.6 Thrombocytopenia, unspecified; E87.5 Hyperkalemia; D64.9 Anemia, unspecified; I10 Essential (primary) hypertension; Z93.1 Gastrostomy status; R47.81 Slurred speech; K21.9 Gastro-esophageal reflux disease without esophagitis; E04.1 Nontoxic single thyroid nodule
CPT/HCPCS: 36415; 70450; 71045; 71046; 71275; 72125; 80048; 80053; 83605; 83880; 84145; 84484; 85025; 85379; 85610; 85730; 86140; 87040; 87635; 93005; 94640; 99284; 99285

== ENCOUNTER 2021-03-20 05:20 | Emergency (ER) | payer MEDICARE, OTHER ==
--- NOTE | 2021-03-20 05:50 | ED ---
SOB HPI - General Source: patient, EMS Mode of arrival: EMS Limitations: altered mental status - History of Present Illness MD Complaint: shortness of breath -: hour(s) Improves With: nothing Worsens With: nothing <Jacobo Ruiz - Last Filed: 03/20/21 07:00> <Nico Ignacio - Last Filed: 03/20/21 07:58> - General Chief Complaint: Shortness of Breath Stated Complaint: ALISON Time Seen by Provider: 03/20/21 05:27 - History of Present Illness Initial Comments: This patient is an 85-year-old woman sent here from [facility] the [facility] after she appeared to be having shortness of breath there. When questioned, the patient mainly nods or shakes her head to respond to questions. She does acknowledge that she was having shortness of breath. She denies having any pain. She was observed to have a little bit of cough. (Jacobo Ruiz) - Related Data Home Medications Medication Instructions Recorded Confirmed Acetaminophen Oral Susp [Tylenol] 650 mg PEG/G-TUBE QID PRN 03/08/21 03/15/21 Ascorbic Acid [Vitamin C] 500 mg PEG/G-TUBE DAILY@0903/08/21 03/15/21 Atorvastatin [Lipitor] 40 mg PEG/G-TUBE HS@209903/08/21 03/15/21 Carvedilol [Coreg] 25 mg PEG/G-TUBE BID@0900,209903/08/21 03/15/21 Cholecalciferol [Vitamin D3 (25 50 mcg PEG/G-TUBE DAILY@89903/08/21 03/15/21 Mcg = 1000 Iu)] Famotidine 20 mg PEG/G-TUBE HS@209903/08/21 03/15/21 Sennosides/Docusate Sodium [Senna 2 tab PEG/G-TUBE HS@209903/08/21 03/15/21 Plus 8.6-50 mg Tablet] Zinc 50 mg PEG/G-TUBE DAILY@89903/08/21 03/15/21 amLODIPine [Norvasc] 10 mg PEG/G-TUBE DAILY@0900 03/08/21 03/15/21 bisacodyL [Bisacodyl] 10 mg RECTAL Q48H 03/08/21 03/15/21 lisinopriL [Zestril] 10 mg PEG/G-TUBE BID@0900,2100 03/08/21 03/15/21 Lactose-Reduced Food/Fiber [Jevity 75 ml PEG/G-TUBE DAILY@1400 03/13/21 03/15/21 1.2 Sachin Liquid] Previous Rx's Medication Instructions Recorded Albuterol Inhaler [Ventolin Hfa 1 puff INHALATION RT-QID PRN puff 03/19/21 Inhaler] Amoxicillin/Potassium Clav 1 tab PO Q12HR 1 Days #6 tab 03/19/21 [Augmentin 875-125 Tablet] Rivaroxaban [Xarelto] 2.5 mg PO DAILY #14 tablet 03/19/21 Allergies Allergy/AdvReac Type Severity Reaction Status Date / Time No Known Allergies Allergy Verified 03/15/21 10:20 Review of Systems ROS Other: All systems not noted in ROS Statement are negative. Constitutional: Denies: fever Respiratory: Reports: cough, dyspnea Cardiovascular: Denies: chest pain, syncope Gastrointestinal: Denies: abdominal pain, vomiting Musculoskeletal: Denies: back pain Neurological: Denies: headache <Jacobo Ruiz - Last Filed: 03/20/21 07:00> ROS Other: All systems not noted in ROS Statement are negative. <Nico Ignacio - Last Filed: 03/20/21 07:58> ROS Statement: Those systems with pertinent positive or pertinent negative responses have been documented in the HPI. Past Medical History Past Medical History: Heart Failure, GERD/Reflux, Hypertension Additional Past Medical History / Comment(s): [facility] COVID positive, brain bleed history with left hemiparesis, contracturs, PEG tube History of Any Multi-Drug Resistant Organisms: Unobtainable Past Surgical History: Unable to Obtain Past Anesthesia/Blood Transfusion Reactions: Unable to Obtain Past Psychological History: Unable to Obtain Smoking Status: Unknown if ever smoked Past Alcohol Use History: Unable to Obtain Past Drug Use History: Unable to Obtain <Jacobo Ruiz - Last Filed: 03/20/21 07:00> General Exam Limitations: altered mental status General appearance: alert, cachectic Head exam: Present: atraumatic, normocephalic Eye exam: Present: normal appearance Respiratory exam: Present: rales Cardiovascular Exam: Present: regular rate, normal rhythm, normal heart sounds. Absent: systolic murmur, diastolic murmur, rubs, gallop GI/Abdominal exam: Present: soft, other (There is a gastric tube in left upper quadrant which appears well-healed with no evidence of infection). Absent: distended, tenderness, guarding, rebound, rigid Extremities exam: Present: normal inspection, normal capillary refill, other (Patient has contractures of the extremities.). Absent: pedal edema, calf tenderness Back exam: Present: normal inspection Neurological exam: Present: alert Skin exam: Present: warm, dry, intact, normal color. Absent: rash <Jacobo Ruiz - Last Filed: 03/20/21 07:00> Course Vital Signs 03/20/21 03/20/21 03/20/21 05:21 06:29 07:27 Temperature 98.6 F 98 F Pulse Rate 93 82 85 Respiratory 16 18 22 Rate Blood Pressure 178/103 155/84 146/95 O2 Sat by Pulse 100 98 94 L Oximetry Medical Decision Making - Lab Data Result diagrams: 03/20/21 05:37 03/20/21 05:37 - EKG Data -: EKG Interpreted by Id EKG shows normal: sinus rhythm (With sinus arrhythmia, rate 90), axis (Normal), intervals (Normal), QRS complexes (Normal), ST-T waves (Normal) Rate: normal <Jacobo Ruiz - Last Filed: 03/20/21 07:00> - Lab Data Result diagrams: 03/20/21 05:37 03/20/21 05:37 <Nico Ignacio - Last Filed: 03/20/21 07:58> - Medical Decision Making Chest x-ray shows a right lower lobe infiltrate and the patient is consistently oxygenating between 9495% on room air. Patient is in no respiratory distress. (Nico Ignacio) - Lab Data Lab Results 03/20/21 03/20/21 03/20/21 Range/Units 05:37 05:37 05:37 WBC 4.4 (3.8-10.6) k/uL RBC 3.58 L (3.80-5.40) m/uL Hgb 10.7 L (11.4-16.0) gm/dL Hct 34.6 (34.0-46.0) % MCV 96.7 (80.0-100.0) fL MCH 29.7 (25.0-35.0) pg MCHC 30.7 L (31.0-37.0) g/dL RDW 14.5 (11.5-15.5) % Plt Count 114 L D (150-450) k/uL MPV 9.0 Neutrophils % 66 % Lymphocytes % 22 % Monocytes % 5 % Eosinophils % 3 % Basophils % 0 % Neutrophils # 2.9 (1.3-7.7) k/uL Lymphocytes # 1.0 (1.0-4.8) k/uL Monocytes # 0.2 (0-1.0) k/uL Eosinophils # 0.1 (0-0.7) k/uL Basophils # 0.0 (0-0.2) k/uL Hypochromasia Slight PT 10.6 (9.0-12.0) sec INR 1.0 (<1.2) APTT 22.5 (22.0-30.0) sec Sodium 139 (137-145) mmol/L Potassium 4.2 (3.5-5.1) mmol/L Chloride 106 (98-107) mmol/L Carbon Dioxide 31 H (22-30) mmol/L Anion Gap 2 mmol/L BUN 13 (7-17) mg/dL Creatinine 0.46 L (0.52-1.04) mg/dL Est GFR (CKD-EPI)AfAm >90 (>60 ml/min/1.73 sqM) Est GFR (CKD-EPI)NonAf >90 (>60 ml/min/1.73 sqM) Glucose 105 H (74-99) mg/dL Plasma Lactic Acid Toy (0.7-2.0) mmol/L Calcium 9.8 (8.4-10.2) mg/dL Total Bilirubin 0.4 (0.2-1.3) mg/dL AST 36 (14-36) U/L ALT 27 (4-34) U/L Alkaline Phosphatase 107 (38-126) U/L Troponin I (0.000-0.034) ng/mL NT-Pro-B Natriuret Pep pg/mL Total Protein 6.2 L (6.3-8.2) g/dL Albumin 3.4 L (3.5-5.0) g/dL 03/20/21 03/20/2103/20/21 Range/Units 05:37 05:37 05:37 WBC (3.8-10.6) k/uL RBC (3.80-5.40) m/uL Hgb (11.4-16.0) gm/dL Hct (34.0-46.0) % MCV (80.0-100.0) fL MCH (25.0-35.0) pg MCHC (31.0-37.0) g/dL RDW (11.5-15.5) % Plt Count (150-450) k/uL MPV Neutrophils % % Lymphocytes % % Monocytes % % Eosinophils % % Basophils % % Neutrophils # (1.3-7.7) k/uL Lymphocytes # (1.0-4.8) k/uL Monocytes # (0-1.0) k/uL Eosinophils # (0-0.7) k/uL Basophils # (0-0.2) k/uL Hypochromasia PT (9.0-12.0) sec INR (<1.2) APTT (22.0-30.0) sec Sodium (137-145) mmol/L Potassium (3.5-5.1) mmol/L Chloride (98-107) mmol/L Carbon Dioxide (22-30) mmol/L Anion Gap mmol/L BUN (7-17) mg/dL Creatinine (0.52-1.04) mg/dL Est GFR (CKD-EPI)AfAm (>60 ml/min/1.73 sqM) Est GFR (CKD-EPI)NonAf (>60 ml/min/1.73 sqM) Glucose (74-99) mg/dL Plasma Lactic Acid Toy 1.3 (0.7-2.0) mmol/L Calcium (8.4-10.2) mg/dL Total Bilirubin (0.2-1.3) mg/dL AST (14-36) U/L ALT (4-34) U/L Alkaline Phosphatase (38-126) U/L Troponin I <0.012 (0.000-0.034) ng/mL NT-Pro-B Natriuret Pep 1540 pg/mL Total Protein (6.3-8.2) g/dL Albumin (3.5-5.0) g/dL Disposition <Jacobo Ruiz - Last Filed: 03/20/21 07:00> Is patient prescribed a controlled substance at d/c from ED?: No Time of Disposition: 07:58 <Nico Ignacio - Last Filed: 03/20/21 07:58> Clinical Impression: Pneumonia due to COVID-19 virus Disposition: HOME SELF-CARE Condition: Good Instructions (If sedation given, give patient instructions): Coronavirus Disease 2019 (COVID-19) Referrals: Jm Ponce MD [Primary Care Provider] - 1-2 days
--- NOTE | 2021-03-20 06:20 | XR ---
EXAM: XR Chest, 1 View CLINICAL HISTORY: ITS.REASON XR Reason: dyspnea TECHNIQUE: Frontal view of the chest. COMPARISON: March 16, 2021 FINDINGS: Lungs: Lungs are hyperexpanded with coarse interstitial markings throughout both lungs consistent with emphysema. There is increase in right basilar density compared to previous which may represent changes and external artifact from soft tissues versus increasing right basilar atelectasis or infiltrate. Pleural space: Unremarkable. No pneumothorax. Heart: The cardiac silhouette is enlarged, similar to previous. Mediastinum: Unremarkable. Bones/joints: Unremarkable. Vasculature: The thoracic aorta is heavily calcified but nondilated, unchanged. Other findings: The patient is rotated to the left. IMPRESSION: 1. The cardiac silhouette is enlarged, similar to previous. 2. The thoracic aorta is heavily calcified but nondilated, unchanged. 3. Lungs are hyperexpanded with coarse interstitial markings throughout both lungs consistent with emphysema. 4. There is increase in right basilar density compared to previous which may represent changes and external artifact from soft tissues versus increasing right basilar atelectasis or infiltrate.
[2021-03-20 06:45] LABS: Basophils % (A) 0 %; Eosinophils # (A) 0.1 k/uL (0-0.7); Eosinophils % (A) 3 %; HCT 34.6 % (34.0-46.0); HGB 10.7 gm/dL (11.4-16.0); Hypochromasia Slight; Lymphocytes % (A) 22 %; MCH 29.7 pg (25.0-35.0); MCHC 30.7 g/dL (31.0-37.0); MCV 96.7 fL (80.0-100.0); Monocytes # (A) 0.2 k/uL (0-1.0); Monocytes % (A) 5 %; Neutrophils # (A) 2.9 k/uL (1.3-7.7); Neutrophils % (A) 66 %; RBC 3.58 m/uL (3.80-5.40); RDW 14.5 % (11.5-15.5); WBC 4.4 k/uL (3.8-10.6)
[2021-03-20 06:47] LABS: Platelet Count 114 k/uL (150-450)
[2021-03-20 06:50] LABS: Partial Thromboplastin Time 22.5 sec (22.0-30.0); Prothrombin Time 10.6 sec (9.0-12.0)
[2021-03-20 06:51] LABS: ALT 27 U/L (4-34); AST 36 U/L (14-36); African American GFR (CKD) >90 (>60 ml/min/1.73 sqM); Albumin 3.4 g/dL (3.5-5.0); Alkaline Phosphatase 107 U/L (38-126); Anion Gap 2 mmol/L; Blood Urea Nitrogen 13 mg/dL (7-17); Calcium 9.8 mg/dL (8.4-10.2); Carbon Dioxide 31 mmol/L (22-30); Chloride 106 mmol/L (98-107); Glucose 105 mg/dL (74-99); Non-African American GFR(CKD) >90 (>60 ml/min/1.73 sqM); Potassium 4.2 mmol/L (3.5-5.1); Sodium 139 mmol/L (137-145); Total Bilirubin 0.4 mg/dL (0.2-1.3); Total Protein 6.2 g/dL (6.3-8.2)
[2021-03-20 07:29] VITALS: TEMP 98
[2021-03-20 09:17] VITALS: BP 149/69; PULSE 84; RESP 24
== END 2021-03-20 09:17 | disposition home or self-care (01) ==
LOC: EC 05:20
DX: U07.1 COVID-19 (principal); J12.82 Pneumonia due to coronavirus disease 2019; I11.0 Hypertensive heart disease with heart failure; I50.9 Heart failure, unspecified; K21.9 Gastro-esophageal reflux disease without esophagitis
CPT/HCPCS: 36415; 71045; 80053; 83605; 83880; 84484; 85025; 85610; 85730; 93005; 99285

== ENCOUNTER 2021-03-26 04:27 | Inpatient (IN) | payer MEDICARE, OTHER ==
[2021-03-26] MEDS ORDERED: IPRATROPIUM-ALBUTEROL 3 ML NEB INHALATION STA (04:35)
[2021-03-26] MEDS ORDERED: LORazepam 2 MG/ML INJ IV STA (04:37)
[2021-03-26] MEDS ORDERED: LORazepam 2 MG/ML INJ IV PRN (04:37)
[2021-03-26] MEDS ORDERED: MORPHINE SULFATE 2 MG/ML SYRINGE IVP STA (04:37)
[2021-03-26] MEDS ORDERED: MORPHINE SULFATE 2 MG/ML SYRINGE IVP PRN (04:37)
[2021-03-26] MEDS ORDERED: methylPREDNISolone SOD SUCCI 125 MG/2 ML VIAL IV STA (04:38)
[2021-03-26] MEDS ORDERED: ALBUTEROL HFA INHALER INHALATION STA (04:45)
[2021-03-26 05:09] LABS: Basophils % (A) 1 %; Eosinophils # (A) 0.2 k/uL (0-0.7); Eosinophils % (A) 4 %; HCT 32.9 % (34.0-46.0); HGB 10.8 gm/dL (11.4-16.0); Hypochromasia Moderate; Lymphocytes % (A) 18 %; MCH 31.9 pg (25.0-35.0); MCHC 32.8 g/dL (31.0-37.0); MCV 97.3 fL (80.0-100.0); Mean Platelet Volume 9.3; Monocytes # (A) 0.4 k/uL (0-1.0); Monocytes % (A) 8 %; Neutrophils # (A) 3.6 k/uL (1.3-7.7); Neutrophils % (A) 66 %; Platelet Count 204 k/uL (150-450); RBC 3.38 m/uL (3.80-5.40); RDW 14.6 % (11.5-15.5); WBC 5.4 k/uL (3.8-10.6)
[2021-03-26 05:20] LABS: ALT 21 U/L (4-34); AST 32 U/L (14-36); African American GFR (CKD) >90 (>60 ml/min/1.73 sqM); Albumin 3.8 g/dL (3.5-5.0); Alkaline Phosphatase 144 U/L (38-126); Anion Gap 5 mmol/L; Blood Urea Nitrogen 31 mg/dL (7-17); Calcium 10.4 mg/dL (8.4-10.2); Carbon Dioxide 32 mmol/L (22-30); Chloride 101 mmol/L (98-107); Creatine Kinase 37 U/L (30-135); Glucose 127 mg/dL (74-99); Magnesium 2.2 mg/dL (1.6-2.3); Non-African American GFR(CKD) >90 (>60 ml/min/1.73 sqM); Phosphorus 3.3 mg/dL (2.5-4.5); Potassium 5.4 mmol/L (3.5-5.1); Sodium 138 mmol/L (137-145); Total Bilirubin 0.3 mg/dL (0.2-1.3); Total Protein 6.8 g/dL (6.3-8.2)
--- NOTE | 2021-03-26 05:28 | XR ---
EXAM: XR Chest, 1 View CLINICAL HISTORY: Altered mental status TECHNIQUE: Frontal view of the chest. COMPARISON: No relevant prior studies available. FINDINGS: Lungs: The left lung is partially obscured by the overlying left upper extremity. No definite airspace consolidation. No evidence of pulmonary edema. Pleural space: No evidence of pneumothorax. Slight blunting of the right lateral costophrenic angle suggestive of a small left pleural effusion. Heart: Cardiac silhouette is within normal limits. Mediastinum: There is no mediastinal widening or shift. Bones/joints: No acute osseous abnormality. IMPRESSION: Left lung partially obscured. No definite airspace consolidation or pulmonary edema. Probable small left pleural effusion.
[2021-03-26 05:38] LABS: INR 0.9 (<1.2); Partial Thromboplastin Time 21.7 sec (22.0-30.0); Prothrombin Time 10.1 sec (9.0-12.0)
--- NOTE | 2021-03-26 05:52 | ED ---
SOB HPI - General Chief Complaint: Shortness of Breath Stated Complaint: ALISON Time Seen by Provider: 03/26/21 04:31 Source: EMS, RN notes reviewed, old records reviewed Mode of arrival: EMS Limitations: physical limitation - History of Present Illness Initial Comments: This is an 85-year-old female DF for evaluation patient presents today for evaluation regarding severe shortness of breath patient a poor story and unable to provide history. Patient will be evaluated and treated here in the emergency department. History obtained from EMS and patient's chart MD Complaint: shortness of breath, cough -: days(s) Severity: severe Quality: throbbing Consistency: constant Improves With: nothing Worsens With: nothing Known History Of: COPD, asthma, congestive heart failure, recurrent pneumonia Context: recent URI, recent illness Associated Symptoms: cough, sputum production Treatments Prior to Arrival: none - Related Data Home Medications Medication Instructions Recorded Confirmed Acetaminophen Oral Susp [Tylenol] 650 mg PEG/G-TUBE QID PRN 03/08/21 03/26/21 Ascorbic Acid [Vitamin C] 500 mg PEG/G-TUBE DAILY@89903/08/21 03/26/21 Atorvastatin [Lipitor] 40 mg PEG/G-TUBE HS@209903/08/21 03/26/21 Carvedilol [Coreg] 25 mg PEG/G-TUBE BID@09,209903/08/21 03/26/21 Cholecalciferol [Vitamin D3 (25 50 mcg PEG/G-TUBE DAILY@89903/08/21 03/26/21 Mcg = 1000 Iu)] Famotidine 20 mg PEG/G-TUBE HS@209903/08/21 03/26/21 Sennosides/Docusate Sodium [Senna 2 tab PEG/G-TUBE HS@209903/08/21 03/26/21 Plus 8.6-50 mg Tablet] Zinc 50 mg PEG/G-TUBE DAILY@89903/08/21 03/26/21 amLODIPine [Norvasc] 10 mg PEG/G-TUBE DAILY@89903/08/21 03/26/21 bisacodyL [Bisacodyl] 10 mg RECTAL Q48H 03/08/21 03/26/21 Lactose-Reduced Food/Fiber [Jevity 75 ml PEG/G-TUBE DAILY@1400 03/13/21 03/26/21 1.2 Sachin Liquid] Hydrophilic Cream [Triad Cream] 1 applic TOPICAL DIRECTED PRN 03/26/21 03/26/21 Hydrophilic Cream [Triad Cream] 1 applic TOPICAL Q12H 03/26/21 03/26/21 Rivaroxaban [Xarelto] 2.5 mg PEG/G-TUBE HS@2100 03/26/21 03/26/21 Zguard 1 applic TOPICAL Q12H 03/26/21 03/26/21 Previous Rx's Medication Instructions Recorded Albuterol Inhaler [Ventolin Hfa 1 puff INHALATION RT-QID PRN puff 03/19/21 Inhaler] hydrALAZINE HCL [Apresoline] 75 mg PO TID #10 tab 03/26/21 Allergies Allergy/AdvReac Type Severity Reaction Status Date / Time No Known Allergies Allergy Verified 03/26/21 06:30 Review of Systems ROS Statement: Those systems with pertinent positive or pertinent negative responses have been documented in the HPI. ROS Other: All systems not noted in ROS Statement are negative. Past Medical History Past Medical History: Heart Failure, GERD/Reflux, Hypertension Additional Past Medical History / Comment(s): History taken from [facility]. COVID positive, brain bleed history with left hemiparesis, contracturs, PEG tube History of Any Multi-Drug Resistant Organisms: Unobtainable Past Surgical History: Unable to Obtain Past Anesthesia/Blood Transfusion Reactions: Unable to Obtain Past Psychological History: Unable to Obtain Smoking Status: Unknown if ever smoked Past Alcohol Use History: Unable to Obtain Past Drug Use History: Unable to Obtain General Exam Limitations: physical limitation General appearance: alert, anxious, in distress, cachectic Head exam: Present: atraumatic, normocephalic, normal inspection Eye exam: Present: normal appearance, PERRL, EOMI. Absent: scleral icterus, conjunctival injection, periorbital swelling ENT exam: Present: normal exam, mucous membranes dry Neck exam: Present: normal inspection. Absent: tenderness, meningismus, lymphadenopathy Respiratory exam: Present: normal lung sounds bilaterally. Absent: respiratory distress, wheezes, rales, rhonchi, stridor Cardiovascular Exam: Present: regular rate, normal rhythm, normal heart sounds. Absent: systolic murmur, diastolic murmur, rubs, gallop, clicks GI/Abdominal exam: Present: soft, normal bowel sounds. Absent: distended, tenderness, guarding, rebound, rigid Extremities exam: Present: normal inspection, full ROM, normal capillary refill. Absent: tenderness, pedal edema, joint swelling, calf tenderness Back exam: Present: normal inspection Neurological exam: Present: alert, oriented X3, CN II-XII intact Psychiatric exam: Present: normal affect, normal mood Skin exam: Present: warm, dry, intact, normal color. Absent: rash Course Vital Signs 03/26/21 03/26/21 04:31 05:42 Temperature 98.6 F Pulse Rate 83 85 Respiratory 26 H Rate Blood Pressure 174/81 149/81 O2 Sat by Pulse 91 L 99 Oximetry - Reevaluation(s) Reevaluation #1: Record is reviewed Patient remains in severe distress throughout ER stay Patient to be admitted for further evaluation and management Medical Decision Making - Medical Decision Making 85 female severe distress, patient has positive coronavirus. Severe hypoxia significant work of breathing, patient DO NOT RESUSCITATE but placement BiPAP for evaluation - Lab Data Result diagrams: 03/26/21 04:49 03/26/21 04:49 Lab Results 03/26/21 03/26/21 03/26/21 Range/Units 04:49 04:49 04:49 WBC 5.4 (3.8-10.6) k/uL RBC 3.38 L (3.80-5.40) m/uL Hgb 10.8 L (11.4-16.0) gm/dL Hct 32.9 L (34.0-46.0) % MCV 97.3 (80.0-100.0) fL MCH 31.9 (25.0-35.0) pg MCHC 32.8 (31.0-37.0) g/dL RDW 14.6 (11.5-15.5) % Plt Count 204 (150-450) k/uL MPV 9.3 Neutrophils % 66 % Lymphocytes % 18 % Monocytes % 8 % Eosinophils % 4 % Basophils % 1 % Neutrophils # 3.6 (1.3-7.7) k/uL Lymphocytes # 1.0 (1.0-4.8) k/uL Monocytes # 0.4 (0-1.0) k/uL Eosinophils # 0.2 (0-0.7) k/uL Basophils # 0.0 (0-0.2) k/uL Hypochromasia Moderate PT 10.1 (9.0-12.0) sec INR 0.9 (<1.2) APTT 21.7 L (22.0-30.0) sec Sodium 138 (137-145) mmol/L Potassium 5.4 H (3.5-5.1) mmol/L Chloride 101 (98-107) mmol/L Carbon Dioxide 32 H (22-30) mmol/L Anion Gap 5 mmol/L BUN 31 H (7-17) mg/dL Creatinine 0.48 L (0.52-1.04) mg/dL Est GFR (CKD-EPI)AfAm >90 (>60 ml/min/1.73 sqM) Est GFR (CKD-EPI)NonAf >90 (>60 ml/min/1.73 sqM) Glucose 127 H (74-99) mg/dL Plasma Lactic Acid Toy (0.7-2.0) mmol/L Calcium 10.4 H (8.4-10.2) mg/dL Phosphorus 3.3 (2.5-4.5) mg/dL Magnesium 2.2 (1.6-2.3) mg/dL Total Bilirubin 0.3 (0.2-1.3) mg/dL AST 32 (14-36) U/L ALT 21 (4-34) U/L Alkaline Phosphatase 144 H (38-126) U/L Creatine Kinase 37 (30-135) U/L Troponin I (0.000-0.034) ng/mL NT-Pro-B Natriuret Pep pg/mL Total Protein 6.8 (6.3-8.2) g/dL Albumin 3.8 (3.5-5.0) g/dL Procalcitonin (0.02-0.09) ng/mL Urine Color Urine Appearance (Clear) Urine pH (5.0-8.0) Ur Specific Chester (1.001-1.035) Urine Protein (Negative) Urine Glucose (UA) (Negative) Urine Ketones (Negative) Urine Blood (Negative) Urine Nitrite (Negative) Urine Bilirubin (Negative) Urine Urobilinogen (<2.0) mg/dL Ur Leukocyte Esterase (Negative) Urine RBC (0-5) /hpf Urine WBC (0-5) /hpf Ur Squamous Epith Cells (0-4) /hpf Urine Yeast (Budding) (None) /hpf Coronavirus (PCR) (Not Detectd) 03/26/21 03/26/21 03/26/21 Range/Units 04:49 04:49 04:49 WBC (3.8-10.6) k/uL RBC (3.80-5.40) m/uL Hgb (11.4-16.0) gm/dL Hct (34.0-46.0) % MCV (80.0-100.0) fL MCH (25.0-35.0) pg MCHC (31.0-37.0) g/dL RDW (11.5-15.5) % Plt Count (150-450) k/uL MPV Neutrophils % % Lymphocytes % % Monocytes % % Eosinophils % % Basophils % % Neutrophils # (1.3-7.7) k/uL Lymphocytes # (1.0-4.8) k/uL Monocytes # (0-1.0) k/uL Eosinophils # (0-0.7) k/uL Basophils # (0-0.2) k/uL Hypochromasia PT (9.0-12.0) sec INR (<1.2) APTT (22.0-30.0) sec Sodium (137-145) mmol/L Potassium (3.5-5.1) mmol/L Chloride (98-107) mmol/L Carbon Dioxide (22-30) mmol/L Anion Gap mmol/L BUN (7-17) mg/dL Creatinine (0.52-1.04) mg/dL Est GFR (CKD-EPI)AfAm (>60 ml/min/1.73 sqM) Est GFR (CKD-EPI)NonAf (>60 ml/min/1.73 sqM) Glucose (74-99) mg/dL Plasma Lactic Acid Toy 1.4 (0.7-2.0) mmol/L Calcium (8.4-10.2) mg/dL Phosphorus (2.5-4.5) mg/dL Magnesium (1.6-2.3) mg/dL Total Bilirubin (0.2-1.3) mg/dL AST (14-36) U/L ALT (4-34) U/L Alkaline Phosphatase (38-126) U/L Creatine Kinase (30-135) U/L Troponin I <0.012 (0.000-0.034) ng/mL NT-Pro-B Natriuret Pep 641 pg/mL Total Protein (6.3-8.2) g/dL Albumin (3.5-5.0) g/dL Procalcitonin (0.02-0.09) ng/mL Urine Color Urine Appearance (Clear) Urine pH (5.0-8.0) Ur Specific Chester (1.001-1.035) Urine Protein (Negative) Urine Glucose (UA) (Negative) Urine Ketones (Negative) Urine Blood (Negative) Urine Nitrite (Negative) Urine Bilirubin (Negative) Urine Urobilinogen (<2.0) mg/dL Ur Leukocyte Esterase (Negative) Urine RBC (0-5) /hpf Urine WBC (0-5) /hpf Ur Squamous Epith Cells (0-4) /hpf Urine Yeast (Budding) (None) /hpf Coronavirus (PCR) (Not Detectd) 03/26/21 03/26/21 03/26/21 Range/Units 04:49 04:52 05:40 WBC (3.8-10.6) k/uL RBC (3.80-5.40) m/uL Hgb (11.4-16.0) gm/dL Hct (34.0-46.0) % MCV (80.0-100.0) fL MCH (25.0-35.0) pg MCHC (31.0-37.0) g/dL RDW (11.5-15.5) % Plt Count (150-450) k/uL MPV Neutrophils % % Lymphocytes % % Monocytes % % Eosinophils % % Basophils % % Neutrophils # (1.3-7.7) k/uL Lymphocytes # (1.0-4.8) k/uL Monocytes # (0-1.0) k/uL Eosinophils # (0-0.7) k/uL Basophils # (0-0.2) k/uL Hypochromasia PT (9.0-12.0) sec INR (<1.2) APTT (22.0-30.0) sec Sodium (137-145) mmol/L Potassium (3.5-5.1) mmol/L Chloride (98-107) mmol/L Carbon Dioxide (22-30) mmol/L Anion Gap mmol/L BUN (7-17) mg/dL Creatinine (0.52-1.04) mg/dL Est GFR (CKD-EPI)AfAm (>60 ml/min/1.73 sqM) Est GFR (CKD-EPI)NonAf (>60 ml/min/1.73 sqM) Glucose (74-99) mg/dL Plasma Lactic Acid Toy (0.7-2.0) mmol/L Calcium (8.4-10.2) mg/dL Phosphorus (2.5-4.5) mg/dL Magnesium (1.6-2.3) mg/dL Total Bilirubin (0.2-1.3) mg/dL AST (14-36) U/L ALT (4-34) U/L Alkaline Phosphatase (38-126) U/L Creatine Kinase (30-135) U/L Troponin I (0.000-0.034) ng/mL NT-Pro-B Natriuret Pep pg/mL Total Protein (6.3-8.2) g/dL Albumin (3.5-5.0) g/dL Procalcitonin 0.13 H (0.02-0.09) ng/mL Urine Color Light Yellow Urine Appearance Cloudy H (Clear) Urine pH 7.5 (5.0-8.0) Ur Specific Chester 1.014 (1.001-1.035) Urine Protein 1+ H (Negative) Urine Glucose (UA) Negative (Negative) Urine Ketones Negative (Negative) Urine Blood Negative (Negative) Urine Nitrite Negative (Negative) Urine Bilirubin Negative (Negative) Urine Urobilinogen <2.0 (<2.0) mg/dL Ur Leukocyte Esterase Negative (Negative) Urine RBC 88 H (0-5) /hpf Urine WBC 5 (0-5) /hpf Ur Squamous Epith Cells 83 H (0-4) /hpf Urine Yeast (Budding) Many H (None) /hpf Coronavirus (PCR) Detected A (Not Detectd) - EKG Data -: EKG Interpreted by Me (EKG is sinus rhythm 82, IL 134 QRS 64 QTC 420) - Radiology Data Radiology results: report reviewed (Chest x-rays negative for acute disease), image reviewed Disposition Clinical Impression: COVID-19, Pneumonia due to COVID-19 virus, DNR no code (do not resuscitate) Disposition: ADMITTED IP TO THIS HOSP Condition: Fair Is patient prescribed a controlled substance at d/c from ED?: No
[2021-03-26] MEDS ORDERED: NALOXONE 0.4 MG/ML 1 ML VIAL IV PRN (06:03)
[2021-03-26] MEDS ORDERED: ONDANSETRON 4 MG/2 ML VIAL IVP PRN (06:04)
[2021-03-26] MEDS ORDERED: SODIUM CHLORIDE 0.9% 500 ML 500 ML IV STA (06:05)
[2021-03-26 06:06] LABS: Appearance,Urine Cloudy (Clear); Bilirubin,Urine Negative (Negative); Blood,Urine Negative (Negative); Budding Yeast,Urine Many /hpf; Color,Urine Light Yellow; Glucose,Urine (UA) Negative (Negative); Ketones,Urine Negative (Negative); Leukocyte Esterase,Urine Negative (Negative); Nitrite,Urine Negative (Negative); PH, Urine 7.5 (5.0-8.0); Protein,Urine 1+ (Negative); RBC,Urine 88 /hpf (0-5); Specific Gravity,Urine 1.014 (1.001-1.035); Squamous Epithelial Cell,Urine 83 /hpf (0-4); Urobilinogen,Urine <2.0 mg/dL (<2.0); WBC,Urine 5 /hpf (0-5)
[2021-03-26] MEDS ORDERED: DEXTROSE 5%-0.45% NACL 1,000 ML IV SCH (06:15)
[2021-03-26] MEDS ORDERED: ALBUTEROL HFA INHALER INHALATION PRN (08:15)
[2021-03-26] MEDS ORDERED: bisacodyL 10 MG SUPP RECTAL SCH (08:15)
[2021-03-26] MEDS ORDERED: HYDROPHILIC CREAM 180 GM TUBE TOPICAL PRN (08:15)
[2021-03-26] MEDS ORDERED: ACETAMINOPHEN ORAL SUSP (PEDS) 3,840 MG/120 ML BOTTLE PEG/G-TUBE PRN (08:15)
[2021-03-26] MEDS ORDERED: carvediloL 12.5 MG TAB PEG/G-TUBE SCH (09:00)
[2021-03-26] MEDS ORDERED: amLODIPine 10 MG TAB PEG/G-TUBE SCH (09:00)
[2021-03-26] MEDS ORDERED: ZINC SULFATE 220 MG CAP PEG/G-TUBE SCH (09:00)
[2021-03-26] MEDS ORDERED: CHOLECALCIFEROL 25 MCG (1000 IU) TABLET PEG/G-TUBE SCH (09:00)
[2021-03-26] MEDS ORDERED: lisinopriL 10 MG TAB PEG/G-TUBE SCH (09:00)
[2021-03-26] MEDS ORDERED: HYDROPHILIC CREAM 180 GM TUBE TOPICAL SCH (09:00)
[2021-03-26] MEDS ORDERED: PANTOPRAZOLE 40 MG/10 ML VIAL IV SCH (09:00)
[2021-03-26] MEDS ORDERED: ZINC OXIDE 20% OINT 28.4 GM TUBE TOPICAL SCH (09:00)
[2021-03-26] MEDS ORDERED: ASCORBIC ACID 500 MG TAB PEG/G-TUBE SCH (09:00)
[2021-03-26 10:00] VITALS: BP 163/72; PULSE 72; RESP 18; TEMP 98.6
[2021-03-26] MEDS ORDERED: FLUCONAZOLE 100 MG TAB PO ONE (10:02)
[2021-03-26 10:08] VITALS: BMI 19.6
--- NOTE | 2021-03-26 10:08 | P.HPIM ---
History of Present Illness Patient is a 85-year-old female was sent in because of shortness of breath and hypoxia. Patient was recently treated for COVID-19 was discharged on March 19 on Augmentin. Patient is presently not on any antibiotics at this time. P atient is saturating well without oxygen. Chest x-ray did not show any significant infiltrate. The patient does appropriately respond is mostly nonverbal unsure what her baseline is. Patient appears to have had a massive stroke in the past with residual left-sided weakness and left arm contracture. Patient doesn't have any fever chills. Urine analysis is consistent with contamination but did show many budding yeast. She does have a elevated potassium of 5.4 and is on lisinopril Review of Systems REVIEW OF SYSTEMS: Except those mentioned above unable to obtain as patient is mostly nonverbal. Unsure what her baseline is Past Medical History Past Medical History: Heart Failure, GERD/Reflux, Hypertension Additional Past Medical History / Comment(s): History taken [facility]. COVID positive, brain bleed history with left hemiparesis, contracturs, PEG tube History of Any Multi-Drug Resistant Organisms: Unobtainable Past Surgical History: Unable to Obtain Past Anesthesia/Blood Transfusion Reactions: Unable to Obtain Past Psychological History: Unable to Obtain Smoking Status: Unknown if ever smoked Past Alcohol Use History: Unable to Obtain Past Drug Use History: Unable to Obtain Medications and Allergies Home Medications Medication Instructions Recorded Confirmed Type Acetaminophen Oral Susp [Tylenol] 650 mg PEG/G-TUBE QID PRN 03/08/21 03/26/21 History Ascorbic Acid [Vitamin C] 500 mg PEG/G-TUBE DAILY@89903/08/21 03/26/21 History Atorvastatin [Lipitor] 40 mg PEG/G-TUBE HS@209903/08/21 03/26/21 History Carvedilol [Coreg] 25 mg PEG/G-TUBE BID@09,209903/08/21 03/26/21 History Cholecalciferol [Vitamin D3 (25 50 mcg PEG/G-TUBE DAILY@0900 03/08/21 03/26/21 History Mcg = 1000 Iu)] Famotidine 20 mg PEG/G-TUBE HS@209903/08/21 03/26/21 History Sennosides/Docusate Sodium [Senna 2 tab PEG/G-TUBE HS@209903/08/21 03/26/21 History Plus 8.6-50 mg Tablet] Zinc 50 mg PEG/G-TUBE DAILY@0900 03/08/21 03/26/21 History amLODIPine [Norvasc] 10 mg PEG/G-TUBE DAILY@0900 03/08/21 03/26/21 History bisacodyL [Bisacodyl] 10 mg RECTAL Q48H 03/08/21 03/26/21 History lisinopriL [Zestril] 10 mg PEG/G-TUBE BID@0900,2100 03/08/21 03/26/21 History Lactose-Reduced Food/Fiber [Jevity 75 ml PEG/G-TUBE DAILY@1400 03/13/21 03/26/21 History 1.2 Sachin Liquid] Albuterol Inhaler [Ventolin Hfa 1 puff INHALATION RT-QID PRN puff 03/19/21 03/26/21 Rx Inhaler] Hydrophilic Cream [Triad Cream] 1 applic TOPICAL DIRECTED PRN 03/26/21 03/26/21 History Hydrophilic Cream [Triad Cream] 1 applic TOPICAL Q12H 03/26/21 03/26/21 History Rivaroxaban [Xarelto] 2.5 mg PEG/G-TUBE HS@2100 03/26/21 03/26/21 History Zguard 1 applic TOPICAL Q12H 03/26/21 03/26/21 History Allergies Allergy/AdvReac Type Severity Reaction Status Date / Time No Known Allergies Allergy Verified 03/26/21 06:30 Physical Exam Vitals: Vital Signs Temp Pulse Pulse Resp BP BP Pulse Ox 03/26/21 07:16 99.5 F 79 20 159/67 97 03/26/21 05:42 85 149/81 99 03/26/21 04:31 98.6 F 83 26 H 174/81 91 L Intake and Output 03/25/21 03/26/21 03/26/21 22:59 06:59 14:59 Other: Weight 45.631 kg PHYSICAL EXAMINATION: GENERAL: The patient is sleepy and able to assess his orientation, not in any acute distress. Thin built HEENT: Pupils are round and equally reacting to light. EOMI. No scleral icterus. No conjunctival pallor. Normocephalic, atraumatic. No pharyngeal erythema. No thyromegaly. CARDIOVASCULAR: S1 and S2 present. No murmurs, rubs, or gallops. PULMONARY: Chest is clear to auscultation, no wheezing or crackles. ABDOMEN: Soft, nontender, nondistended, normoactive bowel sounds. No palpable organomegaly. PEG tube in place MUSCULOSKELETAL: No joint swelling or deformity. EXTREMITIES: No cyanosis, clubbing, or pedal edema. NEUROLOGICAL: Unable to assess due to her clinical condition left arm contracture SKIN: No rashes. Results CBC & Chem 7: 03/26/21 04:49 03/26/21 04:49 Labs: Abnormal Lab Results - Last 24 Hours (Table) 03/26/21 03/26/21 03/26/21 Range/Units 04:49 04:49 04:49 RBC 3.38 L (3.80-5.40) m/uL Hgb 10.8 L (11.4-16.0) gm/dL Hct 32.9 L (34.0-46.0) % APTT 21.7 L (22.0-30.0) sec Potassium 5.4 H (3.5-5.1) mmol/L Carbon Dioxide 32 H (22-30) mmol/L BUN 31 H (7-17) mg/dL Creatinine 0.48 L (0.52-1.04) mg/dL Glucose 127 H (74-99) mg/dL Calcium 10.4 H (8.4-10.2) mg/dL Alkaline Phosphatase 144 H (38-126) U/L Urine Appearance (Clear) Urine Protein (Negative) Urine RBC (0-5) /hpf Ur Squamous Epith Cells (0-4) /hpf Urine Yeast (Budding) (None) /hpf Coronavirus (PCR) (Not Detectd) 03/26/21 03/26/21 Range/Units 04:52 05:40 RBC (3.80-5.40) m/uL Hgb (11.4-16.0) gm/dL Hct (34.0-46.0) % APTT (22.0-30.0) sec Potassium (3.5-5.1) mmol/L Carbon Dioxide (22-30) mmol/L BUN (7-17) mg/dL Creatinine (0.52-1.04) mg/dL Glucose (74-99) mg/dL Calcium (8.4-10.2) mg/dL Alkaline Phosphatase (38-126) U/L Urine Appearance Cloudy H (Clear) Urine Protein 1+ H (Negative) Urine RBC 88 H (0-5) /hpf Ur Squamous Epith Cells 83 H (0-4) /hpf Urine Yeast (Budding) Many H (None) /hpf Coronavirus (PCR) Detected A (Not Detectd) Assessment and Plan Plan: Shortness of breath: Resolved etiology is not known, patient doesn't have any pneumonia as patient is saturating well without any oxygen today I will not pursue any further testing. Patient was recently treated for Covid 19 because of which her PCR is still positive. -Present Covid 19 infection -Funguria: Secondary to recent antibiotics will be given a dose of flucanazole -Possible mental status changes: Her baseline mental status is unknown unsure whether patient has encephalopathy at this time if this is her baseline which is a possibility due to her massive stroke patient will be discharged today or else will further evaluate for causes for encephalopathy or delirium. If this is her baseline patient will be discharged back to her [facility]. -Hypertension can use amlodipine hold off on disability because of hyperkalemia patient blood pressure is already high expected to go up even more patient was started on oral hydralazine instead. If patient is discharged, patient will be discharged on hydralazine for today and probably can be started back on LAURA inhibitor slowly as an outpatient after rechecking with a serum potassium patient will be discharged on low potassium and cardiac diet. 7 hyperlipidemia -History of cerebral vascular accident with chronic contractures -Gastroesophageal reflux disease -PEG tube chronic -Mild to moderate malnutrition.
--- NOTE | 2021-03-26 13:59 | P.DS ---
Providers Date of admission: 03/26/21 06:03 Attending physician: Latricia Flores Consults: 03/26/21 06:03 Consult Physician Routine Consulting Provider: Jefe Pablo Consult Reason/Comments: covid Do you want consulting provider notified?: Yes Primary care physician: Jm Ponce Hospital Course: Patient is not hypoxic here saturating at 91% on 2 L patient evidently uses 2 L of oxygen. Patient mental status apparently is baseline patient has fluctuating mental status which is consistent with the dementia patient probably has vascular dementia. Patient will be discharged back to subacute rehabilitation. For rest of the details of hospital physician please refer to my HPI. Patient is hyperkalemic probably because of the LAURA inhibitor which will be held and instead patient will be started on hydralazine 75 3 times a day. Patient need to be started on low potassium PEG tube feedings once the potassium comes down at that time hydralazine probably can be discontinued and the patient can be started on LAURA inhibitor. Patient Condition at Discharge: Fair Plan - Discharge Summary Discharge Rx Participant: No New Discharge Prescriptions: New hydrALAZINE HCL [Apresoline] 75 mg PO TID #10 tab Continue Acetaminophen Oral Susp [Tylenol] 650 mg PEG/G-TUBE QID PRN PRN Reason: Fever Cholecalciferol [Vitamin D3 (25 Mcg = 1000 Iu)] 50 mcg PEG/G-TUBE DAILY@0900 amLODIPine [Norvasc] 10 mg PEG/G-TUBE DAILY@0900 bisacodyL [Bisacodyl] 10 mg RECTAL Q48H Ascorbic Acid [Vitamin C] 500 mg PEG/G-TUBE DAILY@0900 Lactose-Reduced Food/Fiber [Jevity 1.2 Sachin Liquid] 75 ml PEG/G-TUBE DAILY@1400 Albuterol Inhaler [Ventolin Hfa Inhaler] 1 puff INHALATION RT-QID PRN puff PRN Reason: Shortness Of Breath Or Wheezing Zguard 1 applic TOPICAL Q12H Hydrophilic Cream [Triad Cream] 1 applic TOPICAL Q12H Zinc 50 mg PEG/G-TUBE DAILY@0900 Sennosides/Docusate Sodium [Senna Plus 8.6-50 mg Tablet] 2 tab PEG/G-TUBE HS@2100 Carvedilol [Coreg] 25 mg PEG/G-TUBE BID@0900,2100 Famotidine 20 mg PEG/G-TUBE HS@2100 Atorvastatin [Lipitor] 40 mg PEG/G-TUBE HS@2099 Rivaroxaban [Xarelto] 2.5 mg PEG/G-TUBE HS@2100 Hydrophilic Cream [Triad Cream] 1 applic TOPICAL DIRECTED PRN PRN Reason: buttcks skin integrity Discontinued lisinopriL [Zestril] 10 mg PEG/G-TUBE BID@899,2099 Discharge Medication List Acetaminophen Oral Susp [Tylenol] 650 mg PEG/G-TUBE QID PRN 03/08/21 [History] Ascorbic Acid [Vitamin C] 500 mg PEG/G-TUBE DAILY@89903/08/21 [History] Atorvastatin [Lipitor] 40 mg PEG/G-TUBE HS@209903/08/21 [History] Carvedilol [Coreg] 25 mg PEG/G-TUBE BID@899,209903/08/21 [History] Cholecalciferol [Vitamin D3 (25 Mcg = 1000 Iu)] 50 mcg PEG/G-TUBE DAILY@89903/08/21 [History] Famotidine 20 mg PEG/G-TUBE HS@209903/08/21 [History] Sennosides/Docusate Sodium [Senna Plus 8.6-50 mg Tablet] 2 tab PEG/G-TUBE HS@209903/08/21 [History] Zinc 50 mg PEG/G-TUBE DAILY@89903/08/21 [History] amLODIPine [Norvasc] 10 mg PEG/G-TUBE DAILY@89903/08/21 [History] bisacodyL [Bisacodyl] 10 mg RECTAL Q48H 03/08/21 [History] Lactose-Reduced Food/Fiber [Jevity 1.2 Sachin Liquid] 75 ml PEG/G-TUBE DAILY@1400 03/13/21 [History] Albuterol Inhaler [Ventolin Hfa Inhaler] 1 puff INHALATION RT-QID PRN puff 03/19/21 [Rx] Hydrophilic Cream [Triad Cream] 1 applic TOPICAL DIRECTED PRN 03/26/21 [History] Hydrophilic Cream [Triad Cream] 1 applic TOPICAL Q12H 03/26/21 [History] Rivaroxaban [Xarelto] 2.5 mg PEG/G-TUBE HS@209903/26/21 [History] Zguard 1 applic TOPICAL Q12H 03/26/21 [History] hydrALAZINE HCL [Apresoline] 75 mg PO TID #10 tab 03/26/21 [Rx] Follow up Appointment(s)/Referral(s): Jm Ponce MD [Primary Care Provider] - 1-2 days [facility] [place], [NON-STAFF] - As Needed Discharge Disposition: TRANSFER TO SNF/ECF
[2021-03-26] MEDS ORDERED: LACTOSE REDUCED FOOD PEG/G-TUBE SCH (14:00)
[2021-03-26] MEDS ORDERED: FIBER PEG/G-TUBE SCH (14:00)
--- NOTE | 2021-03-26 16:05 | P.CNPUL ---
History of Present Illness Consult date: 03/26/21 Reason for consult: pneumonia History of present illness: 85-year-old female patient who was noted to hospital because of some increased shortness of breath and hypoxemia. Noted the patient was recently diagnosed in COVID-19 related infection/pneumonia and she was in the hospital and she was discharged home on 03/19/2021 after being treated in inpatient basis. The patient was Hospital as for COVID-19 related pneumonia. There was possibility of a secondary bacterial infection/pneumonia and the patient was treated with a combination of steroids and antibiotics and the patient was given IV Zosyn and Zithromax and ultimately the patient was released on Augmentin. The patient is nonverbal. 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 She has a PEG tube feeding for nutritional supp ort. She has hypertension. The patient underwent a CT angiogram on 03/15/2071 and showed airspace disease in the right lower lobe and the left lower lobe and there was no evidence of any pleural effusion and there was emphysematous changes bilaterally along with some chronic diseases or changes bilaterally. The patient had satisfactory opacification of the pulmonary arteries. There were also no bands thyroid nodules. There was also evidence of thoracic spondylosis. The patient was asked to continue amoxicillin/clavulanate twice a day for the next 3 days post discharge. . During this current admission, the patient's white cell count is at 5.4 with a hemoglobin of 10.8, comparable to [facility] previous studies. UA was showing budding yeast and +1 protein and +88 WBCs per high-power field, BMI was 31 with a creatinine of 0.4, electrolytes she was the potassium level of 5.4 with a serum bicarb of 32. LFTs were normal. Troponins were negative. ProBNP level was 641. TROPONIN levels from her prior admission was 0.1. Repeat chest x-ray shows no definite airspace disease or consolidation or edema. There was probably a small left-sided pleural effusion. The lungs are essentially clear. Note that the left lung with partial secured by the left upper extremity. At the time of my evaluation, the patient was resting comfortably and she was on 2 L about 2 by nasal cannula with a pulse ox of 99%. Breathing was nonlabored and there was no signs of any respiratory distress. No reported aspiration. Review of Systems ROS unobtainable: due to mental status Past Medical History Past Medical History: Heart Failure, GERD/Reflux, Hypertension Additional Past Medical History / Comment(s): History taken from [facility] paperwork. COVID positive, brain bleed history with left hemiparesis, contracturs, PEG tube History of Any Multi-Drug Resistant Organisms: Unobtainable Past Surgical History: Unable to Obtain Past Anesthesia/Blood Transfusion Reactions: Unable to Obtain Past Psychological History: Unable to Obtain Smoking Status: Unknown if ever smoked Past Alcohol Use History: Unable to Obtain Past Drug Use History: Unable to Obtain Medications and Allergies Home Medications Medication Instructions Recorded Confirmed Type Acetaminophen Oral Susp [Tylenol] 650 mg PEG/G-TUBE QID PRN 03/08/21 03/26/21 History Ascorbic Acid [Vitamin C] 500 mg PEG/G-TUBE DAILY@89903/08/21 03/26/21 History Atorvastatin [Lipitor] 40 mg PEG/G-TUBE HS@209903/08/21 03/26/21 History Carvedilol [Coreg] 25 mg PEG/G-TUBE BID@0900,209903/08/21 03/26/21 History Cholecalciferol [Vitamin D3 (25 50 mcg PEG/G-TUBE DAILY@0903/08/21 03/26/21 History Mcg = 1000 Iu)] Famotidine 20 mg PEG/G-TUBE HS@209903/08/21 03/26/21 History Sennosides/Docusate Sodium [Senna 2 tab PEG/G-TUBE HS@209903/08/21 03/26/21 History Plus 8.6-50 mg Tablet] Zinc 50 mg PEG/G-TUBE DAILY@0903/08/21 03/26/21 History amLODIPine [Norvasc] 10 mg PEG/G-TUBE DAILY@0900 03/08/21 03/26/21 History bisacodyL [Bisacodyl] 10 mg RECTAL Q48H 03/08/21 03/26/21 History Lactose-Reduced Food/Fiber [Jevity 75 ml PEG/G-TUBE DAILY@1400 03/13/21 03/26/21 History 1.2 Sachin Liquid] Albuterol Inhaler [Ventolin Hfa 1 puff INHALATION RT-QID PRN puff 03/19/21 03/26/21 Rx Inhaler] Hydrophilic Cream [Triad Cream] 1 applic TOPICAL DIRECTED PRN 03/26/21 03/26/21 History Hydrophilic Cream [Triad Cream] 1 applic TOPICAL Q12H 03/26/21 03/26/21 History Rivaroxaban [Xarelto] 2.5 mg PEG/G-TUBE HS@2100 03/26/21 03/26/21 History Zguard 1 applic TOPICAL Q12H 03/26/21 03/26/21 History hydrALAZINE HCL [Apresoline] 75 mg PO TID #10 tab 03/26/21 Rx Allergies Allergy/AdvReac Type Severity Reaction Status Date / Time No Known Allergies Allergy Verified 03/26/21 06:30 Physical Exam Vitals: Vital Signs Temp Pulse Pulse Resp BP BP Pulse Ox 03/26/21 09:55 98.6 F 72 18 163/72 99 03/26/21 08:00 72 18 03/26/21 07:16 99.5 F 79 20 159/67 97 03/26/21 05:42 85 149/81 99 03/26/21 04:31 98.6 F 83 26 H 174/81 91 L Intake and Output 03/26/21 03/26/21 03/26/21 06:59 14:59 22:59 Other: Voiding Method Diaper Incontinent Weight 45.631 kg 45.631 kg GENERAL: The patient is not communicating and this point in time.. Thin built, BMI of 19.6. The patient is nonverbal. Does not look toxic. Does not seem to be in any respiratory distress. Head exam was generally normal. There was no scleral icterus or corneal arcus. Mucous membranes were moist. HEENT: Pupils are round and equally reacting to light. EOMI. No scleral icterus. No conjunctival pallor. Normocephalic, atraumatic. No pharyngeal erythema. No thyromegaly. CARDIOVASCULAR: S1 and S2 present. No murmurs, rubs, or gallops. PULMONARY: Chest is clear to auscultation, no wheezing or crackles. ABDOMEN: Soft, nontender, nondistended, normoactive bowel sounds. No palpable organomegaly. PEG tube in place MUSCULOSKELETAL: No joint swelling or deformity. EXTREMITIES: No cyanosis, clubbing, or pedal edema. NEUROLOGICAL: Left-sided hemiplegia and contractures involving the left upper extremity. The patient has aphasia. She is nonverbal. SKIN: No rashes. Results - Laboratory Findings CBC and BMP: 03/26/21 04:49 03/26/21 04:49 PT/INR, D-dimer PT 10.1 sec (9.0-12.0) 03/26/21 04:49 INR 0.9 (<1.2) 03/26/21 04:49 Abnormal lab findings: Abnormal Labs 03/26/21 03/26/21 03/26/21 04:49 04:49 04:49 RBC 3.38 L Hgb 10.8 L Hct 32.9 L APTT 21.7 L Potassium 5.4 H Carbon Dioxide 32 H BUN 31 H Creatinine 0.48 L Glucose 127 H Calcium 10.4 H Alkaline Phosphatase 144 H Urine Appearance Urine Protein Urine RBC Ur Squamous Epith Cells Urine Yeast (Budding) Coronavirus (PCR) 03/26/21 03/26/21 04:52 05:40 RBC Hgb Hct APTT Potassium Carbon Dioxide BUN Creatinine Glucose Calcium Alkaline Phosphatase Urine Appearance Cloudy H Urine Protein 1+ H Urine RBC 88 H Ur Squamous Epith Cells 83 H Urine Yeast (Budding) Many H Coronavirus (PCR) Detected A - Diagnostic Findings Chest x-ray: image reviewed Assessment and Plan Plan: 1 COVID-19 infection, question with pneumonia, currently asymptomatic on 2 L with a pulse ox of 99% and no signs of the rest or distress 2 UTI, likely fungal , candidal in nature as the patient has budding yeast and the patient will be treated accordingly 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 4 chronic dysphagia and the patient has enteral feeding for nutritional support via PEG tube 5. Hypertension 6 hyperlipidemia Plan Overall pulmonary status is stable. Agree on the current management. Discharge planning is in progress. Restart enteral feeding. She has support. Treat fungal UTI. Pulmonary critical care services we'll sign off.
[2021-03-26] MEDS ORDERED: ATORVASTATIN 40 MG TAB PEG/G-TUBE SCH (21:00)
[2021-03-26] MEDS ORDERED: SENNOSIDES-DOCUSATE SODIUM 1 EACH TAB PO SCH (21:00)
[2021-03-26] MEDS ORDERED: FAMOTIDINE 20 MG TAB PEG/G-TUBE SCH (21:00)
[2021-03-26] MEDS ORDERED: RIVAROXABAN 2.5 MG TABLET PO SCH (21:00)
== END 2021-03-26 17:15 | DRG 178 ==
LOC: EC 04:27 → 4SSUR 06:03
PROVIDERS: ADMIT Hospitalist; ATTEND Hospitalist
PROC: 3E0G76Z Introduction of Nutritional Substance into Upper GI, Via Natural or Artificial Opening (ICD-10-PCS; principal; 2021-03-26)
DX: U07.1 COVID-19 (principal); B37.49 Other urogenital candidiasis; E44.0 Moderate protein-calorie malnutrition; Z68.1 Body mass index [BMI] 19.9 or less, adult; I69.354 Hemiplegia and hemiparesis following cerebral infarction affecting left non-dominant side; K21.9 Gastro-esophageal reflux disease without esophagitis; J44.9 Chronic obstructive pulmonary disease, unspecified; M47.814 Spondylosis without myelopathy or radiculopathy, thoracic region; Z66 Do not resuscitate; E78.5 Hyperlipidemia, unspecified; E87.5 Hyperkalemia; T46.5X5A Adverse effect of other antihypertensive drugs, initial encounter; F01.50 Vascular dementia, unspecified severity, without behavioral disturbance, psychotic disturbance, mood disturbance, and anxiety; I11.0 Hypertensive heart disease with heart failure; I50.9 Heart failure, unspecified; I69.191 Dysphagia following nontraumatic intracerebral hemorrhage; R13.10 Dysphagia, unspecified; R09.02 Hypoxemia; Z79.01 Long term (current) use of anticoagulants; Z79.899 Other long term (current) drug therapy; Z93.1 Gastrostomy status; Z87.01 Personal history of pneumonia (recurrent)
CPT/HCPCS: 36415; 71045; 80053; 81001; 82550; 83605; 83735; 83880; 84100; 84145; 84484; 85025; 85610; 85730; 87635; 93005; 94640; 96374; 96375; 99285